=== PATIENT | male | born 1955 | race Caucasian/White ===

== ENCOUNTER 2020-05-19 11:53 | Outpatient (CLI) | payer OTHER, SELFPAY ==
--- NOTE | ~2020-05-19 | XR_ITS ---
XR finger 4th LT min 2V DATE: 05/19/2020 12:13 INDICATION: Distal phalanx fracture TECHNIQUE: 4 views COMPARISON: 04/07/2019 left fourth finger FINDINGS: There is healed fracture deformity of the distal shaft and tuft of the distal phalanx. No other fracture or dislocation. IMPRESSION: Healed fracture of distal phalanx Reviewed, dictated and finalized at location B.
== END 2020-05-19 11:54 | disposition home or self-care (01) ==
LOC: ANHIMG 11:59
PROVIDERS: PCP Physician Assistant; Visit Provider Plastic Surgery
DX: S62.635D Displaced fracture of distal phalanx of left ring finger, subsequent encounter for fracture with routine healing (principal); X58.XXXD Exposure to other specified factors, subsequent encounter
CPT/HCPCS: 73140

== ENCOUNTER → 2020-05-20 11:22 | Outpatient (CLI) | payer OTHER, SELFPAY ==
--- NOTE | ~2020-05-20 | US_ITS ---
EXAMINATION: US carotid duplex BI DATE: 05/20/2020 12:58 INDICATION: Near syncope. TECHNIQUE: Grayscale, color Doppler, and pulsed Doppler images of the cervical carotid arteries were obtained. The degree of vessel stenosis is placed in one of the following categories: normal, <50%, 5 0-69%, >=70% but less than near-occlusion, near-occlusion, or total occlusion. Note that percent sten osis relative to normal distal artery lumen diameter is indirectly measured from velocity measurement s as described by Brock, et al. Radiology 2003; 229:340-346. COMPARISON: None. FINDINGS: RIGHT: The right common carotid artery (CCA) peak systolic velocity (PSV) is 93 cm/s. The right internal car otid artery (ICA) PSV is 63 cm/s. The right ICA end-diastolic velocity (EDV) is 17 cm/s. The right IC A/CCA PSV ratio is 0.7. Grayscale and color Doppler images yield an estimate of 0% diameter reduction from plaque in the ICA. There is antegrade flow in the right vertebral artery. LEFT: The left CCA PSV is 100 cm/s. The left ICA PSV is 59 cm/s. The left ICA EDV is 16 cm/s. The left ICA/ CCA PSV ratio is 0.6. Grayscale and color Doppler images yield an estimate of 0% diameter reduction f rom plaque in the ICA. There is antegrade flow in the left vertebral artery. IMPRESSION: 1. Normal internal carotid arteries. Reviewed, dictated and finalized at location A.
--- NOTE | ~2020-05-20 | MR_ITS ---
EXAMINATION: MR brain/brain stem wo/w con DATE: 05/20/2020 12:11 INDICATION: Syncope and collapse. TECHNIQUE: Magnetic resonance imaging (MRI) of the brain and brainstem was performed without and with 17 mL MultiHance intravenous contrast. Sequences included sagittal and axial T1-weighted FSE, axial diffusion-weighted FS EPI, axial T2*-weighted GRE, axial T2-weighted FLAIR Propeller, and axial T2-we ighted Propeller. Postcontrast sequences included axial and coronal T1-weighted FSE. Apparent diffusi on coefficient (ADC) maps were created. 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 There is no intracranial he morrhage, acute infarction, or abnormal intracranial mass lesion. The ventricles are normal in size. The paranasal sinuses are clear. The orbits are normal. The mastoid air cells are normal. IMPRESSION: 1. 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 Reviewed, dictated and finalized at location A.
[2020-05-20 11:59] LABS: Estimated Glomerular Filt Rate > 60
== END ==
PROVIDERS: PCP Physician Assistant; Visit Provider Physician Assistant
DX: R55 Syncope and collapse (principal); Z86.73 Personal history of transient ischemic attack (TIA), and cerebral infarction without residual deficits
CPT/HCPCS: 36415; 70553; 93880; A9577

== ENCOUNTER 2020-12-11 11:30 | Emergency (ER) | payer OTHER, SELFPAY ==
--- NOTE | ~2020-12-11 | XR_ITS ---
EXAMINATION: XR ankle RT 2V DATE: 12/11/2020 14:12 INDICATION: Distal right fibula fracture. TECHNIQUE: 2 views of right ankle were obtained. COMPARISON: Right ankle radiographs at 11:38 AM FINDINGS: There is an oblique fracture of distal fibula with the anteromedial aspect of the fracture line at the level of the tibial plafond. The distal fracture fragment demonstrates 4 mm posterior dis placement. Alignment is now normal at the ankle mortise. Joint spaces are normal. Cast material obscu res fine bone detail. IMPRESSION: 1. Oblique fracture of distal fibula with improvement in alignment. 2. Complete tear of the deltoid ligament with improved alignment at the tibiotalar joint. Reviewed, dictated and finalized at location A. INSPECTOR IMPRESSION: 1. Oblique fracture of distal fibula with improvement in alignment. 2. Complete tear of the deltoid ligament with improved alignment at the tibiota lar joint.
--- NOTE | ~2020-12-11 | XR_ITS ---
EXAMINATION: XR ankle RT min 3V DATE: 12/11/2020 11:55 INDICATION: Right ankle deformity post fall on ice. TECHNIQUE: Anteroposterior, oblique, mortise, and lateral views of the right ankle were obtained. COMPARISON: None. FINDINGS: There is an oblique fracture through the distal fibula with a fracture plane exiting medially at the level of the tibiotalar joint. There is approximately 11 mm lateral to posterolateral displacement an d 5 degrees posterior angulation. No other fracture identified. Specifically the medial and posteri or malleoli as well as the talar dome are intact. There is however associated mild lateral subluxatio n of the talar dome with respect to the tibial plafond and with widening of the medial clear space wh ich measures approximately 10 mm consistent with associated deltoid ligament tear. There is a small a nkle joint effusion with widening of the anterior joint space. No ankle joint effusion. IMPRESSION: 1. [Posterolateral displacement of an oblique fracture of the distal left fibula and widening of the medial clear space consistent with a Dawn type B2 injury pattern with associated deltoid ligament te ar. Reviewed, dictated and finalized at location B. TROPHYSIOLOGY SCIENTIST IMPRESSION: 1. [Posterolateral displacement of an oblique fracture of the distal left fibul a and widening of the medial clear space consistent with a Dawn type B2 injury pattern with associated deltoid ligament tear.
[2020-12-11 11:27] VITALS: BP 173/97; PULSE 70; RESP 17; TEMP 36.8; O2SAT 100
--- NOTE | 2020-12-11 12:55 | ED.GENADULT ---
HPI - General Adult General Chief complaint: Fall Stated complaint: FALL/ANKLE DEFORMITY Time Seen by Provider: 12/11/20 11:40 History of Present Illness HPI narrative: Patient is a 65-year-old male who presents ER with left ankle deformity. She went out for a walk and slipped on the ice. He then hit the ground injuring his ankle. Reports deformity after falling. EMS splinted the ankle. Patient denies striking his head or losing consciousness. No other injuries that he reports. He has no numbness or tingling in his foot. He has throbbing pain in his ankle at this time. Related Data Allergies Allergy/AdvReac Type Severity Reaction Status Date / Time No Known Allergies Allergy Unverified 04/07/19 16:26 Review of Systems Musculoskeletal: Musculoskeletal: Denies back pain, Reports arthralgias and Reports joint swelling Integumentary/Breasts: Skin/Breast: Denies erythema and Denies rash Neurologic: Denies syncope, Denies focal weakness and Denies numbness PMFSH Past Medical History Medical History (Updated 12/11/20 @ 14:47 by Bogdan Armas MD) Atrial fibrillation Surgical History Surgical History (Updated 12/11/20 @ 12:57 by Bogdan Armas MD) No history of previous surgery Family History Family History (Updated 12/07/17 @ 11:02 by DOCTOR UNKNOWN) Mother Patient's mother is in good health Father Malignant neoplasm of prostate Social History Social History Smoking status: Never smoker Alcohol intake: current Exam Narrative: Exam Narrative: GENERAL: Well-appearing, well-nourished, and in no acute distress. HEAD: Normocephalic, atraumatic. HEART: Regular rate and rhythm. Normal peripheral pulses. EXTREMITIES: The right ankle with tenderness. Splint placed. No tenderness or deformity to the knee/hip on the right lower extremity. Otherwise extremities are normal. SKIN: Warm, dry, no rash. NEURO: Alert and oriented x3. PSYCH: Normal mood and affect. Course Course Emergency Course: Patient splinted. Repeat films show improvement in alignment. Will give crutch training. Discussed with Dr. Quinones who would like patient follow-up tomorrow morning at 10:30 AM. Patient verbalized understanding of this. Vital Signs Vital signs: Vital Signs Temperature 98.2 F 12/11/20 11:27 Pulse Rate 70 12/11/20 11:27 Respiratory Rate 17 12/11/20 11:27 Blood Pressure 173/97 H 12/11/20 11:27 Pulse Oximetry 100 12/11/20 11:27 Temperature 98.2 F 12/11/20 11:27 Pulse Rate 70 12/11/20 11:27 Respiratory Rate 17 12/11/20 11:27 Blood Pressure 173/97 H 12/11/20 11:27 Pulse Oximetry 100 12/11/20 11:27 Procedures Orthopedic Splinting/Casting Injury #1: Splinting/Casting Date: 12/11/20 Splinting/Casting Time: 14:00 Side: right Lower Extremity Injury Location: ankle Lower Extremity Immobilizer: posterior splint and stirrup splint Splint: customized in ED Pre-Procedure Neuro Vascular Exam: normal Post-Procedure Neuro Vascular Exam: normal Other Orthopedic Equipment: crutches Medical Decision Making Vital Signs Vital Signs: Vital Signs Temperature 98.2 F 12/11/20 11:27 Pulse Rate 70 12/11/20 11:27 Respiratory Rate 17 12/11/20 11:27 Blood Pressure 173/97 H 12/11/20 11:27 Pulse Oximetry 100 12/11/20 11:27 Temperature 98.2 F 12/11/20 11:27 Pulse Rate 70 12/11/20 11:27 Respiratory Rate 17 12/11/20 11:27 Blood Pressure 173/97 H 12/11/20 11:27 Pulse Oximetry 100 12/11/20 11:27 Imaging Data Radiologist's impression: ITS Impressions Ankle X-Ray 12/11/20 11:55 IMPRESSION: 1. [Posterolateral displacement of an oblique fracture of the distal left fibula and widening of the medial clear space consistent with a Dawn type B2 injury pattern with associated deltoid ligament tear. Ankle X-Ray 12/11/20 14:18 IMPRESSION: 1. Oblique fracture of distal fibula with improvem
[2020-12-11] MEDS: MORPHINE SULFATE (*CRX) 4 MG/ML INJ IV PUSH (14:06)
[2020-12-11 15:05] VITALS: BP 148/79; PULSE 60; RESP 20; O2SAT 99
== END 2020-12-11 15:05 | disposition home or self-care (01) ==
PROVIDERS: Emergency Provider Emergency Medicine; PCP Physician Assistant
DX: S82.841A Displaced bimalleolar fracture of right lower leg, initial encounter for closed fracture (principal); S93.421A Sprain of deltoid ligament of right ankle, initial encounter; I48.91 Unspecified atrial fibrillation; W00.0XXA Fall on same level due to ice and snow, initial encounter
CPT/HCPCS: 29515; 73600; 73610; 96374; 99284; J2270

== ENCOUNTER 2020-12-13 01:15 | Outpatient (CLI) | payer OTHER, SELFPAY ==
[2020-12-13 18:47] LABS: SARS-CoV-2 RNA PCR Negative
== END 2020-12-13 01:16 | disposition home or self-care (01) ==
LOC: ANHCOVIDDT 01:16
PROVIDERS: PCP Physician Assistant; Visit Provider Orthopaedic Surgery
DX: Z01.812 Encounter for preprocedural laboratory examination (principal); Z20.822 Contact with and (suspected) exposure to COVID-19
CPT/HCPCS: C9803; U0003; U0005

== ENCOUNTER 2020-12-15 01:02 | Day surgery (SDC) | payer OTHER, SELFPAY ==
[2020-12-12 14:00] VITALS: BMI 26.8
[2020-12-15] VITALS (7 sets, daily range): BP systolic 117–143; BP diastolic 74–90; PULSE 55–70; RESP 12–20; TEMP 36.1–36.7; O2SAT 97–100
--- NOTE | ~2020-12-15 | XR_ITS ---
XR surgery orthopedic 12/15/2020 15:47 Indication: Intraoperative fixation of right ankle fracture Procedure: 4 views of the right ankle. 24 seconds of fluoroscopy. Comparison: 12/11/2020 Findings: Status post intraoperative fixation of oblique distal fibular fracture with sideplate and s crews. Right ankle is in anatomic alignment post reduction. Ankle mortise intact. Impression: 1: Anatomic alignment of the right ankle status post intraoperative fixation of distal fibular fractu re with sideplate and screws. Reviewed, dictated and finalized at location A. [employer] Impression: 1: Anatomic alignment of the right ankle status post intraoperative fixation of distal fibular fracture with sideplate and screws.
--- NOTE | 2020-12-15 10:49 | ECG_ITS ---
Measurements Intervals [place] Rate: 71 P: 70 SD: 153 QRS: 43 QRSD: 102 T: 30 QT: 382 QTc: 416 Interpretive Statements SINUS RHYTHM WITH SINUS ARRHYTHMIA NORMAL ECG Electronically Signed On 12-15-2020 12:50:39 FINISHED [employer] by Rene Schmitt D.O.
--- NOTE | 2020-12-15 12:34 | WPDANESEPPF ---
Anes - Initial Pre Proc Eval Procedure: Operation Date: 12/15/20 14:00 Proposed Procedures p Open Reduction Internal Fixation Right Ankle Fracture - Reynaldo Quinones MD Date/Time: 12/15/20 12:34 Surgeon: Reynaldo Quinones MD Pre Op Diagnosis: right malleolar and lateral ankle fx Patient Data Age: 65 Gender: M Height: 1.8 m Weight: 87.27 kg Allergies Allergy/AdvReac Type Severity Reaction Status Date / Time No Known Allergies Allergy Unverified 12/12/20 13:54 Home Medications Medication Instructions Recorded Confirmed Type hydrocodone-acetaminophen 1 tablet PO Q6H PRN #20 tablet 12/11/20 12/12/20 Rx ascorbic acid (vitamin C) [Vitamin 1 tablet PO QAM 12/12/20 12/12/20 History C] astaxanthin 4 mg PO QAM 12/12/20 12/12/20 History cholecalciferol (vitamin D3) 25 mcg PO DAILY 12/12/20 12/12/20 History [Vitamin D3] krill oil 500 mg PO QAM 12/12/20 12/12/20 History metoprolol succinate 50 mg QAM 12/12/20 12/12/20 History zinc 50 mg PO DAILY 12/12/20 12/12/20 History Patient hx anesthesia problems: none Family hx anesthesia problems: none PMFSH Past Medical History Medical History (Updated 12/15/20 @ 12:39 by Kaushik Hodges MD) Atrial fibrillation Spinal stenosis Surgical History Surgical History (Updated 12/11/20 @ 12:57 by Bogdan Armas MD) No history of previous surgery Family History Family History (Updated 12/07/17 @ 11:02 by DOCTOR UNKNOWN) Mother Patient's mother is in good health Father Malignant neoplasm of prostate Social History Social History Smoking status: Never smoker Second hand tobacco smoke exposure: No Alcohol intake: current Drinks per week: 3 Substance use: never Substance use type: does not use Living arrangements: with family Spiritual care concerns: No Anes - Eval Final PreProcedure Day of Procedure 12/15/20 12:34 Patient weight: obese Heart: regular rate and rhythm Lungs: clear to auscultation and normal air movement Airway: Mallampati scale class II Neurological: alert and oriented Last oral intake: >/= 8 hours ASA classification: III Emergent: no Anesthetic plan: proceed Anesthesia type and monitoring: general LMA and ETT Informed Consent: The patient's anesthetic plan and its attendant risks and benefits were discussed with the patient/family/POA. Questions were solicited and answers provided to the satisfaction of the patient/family/POA.
--- NOTE | 2020-12-15 13:02 | SUR.PREOP ---
pt with slint drsg to right foot,surgical scrub sent to or,no shaving done.
[2020-12-15] MEDS: LACTATED RINGERS 1,000 ML 30 ML IV CONT ×2 (13:09→15:36)
[2020-12-15] MEDS: KETOROLAC 15 MG/ML VIAL (*BKC) IV PUSH (13:12)
[2020-12-15] MEDS: FAMOTIDINE 20 MG/2 ML VIAL IV PUSH (13:12)
[2020-12-15] MEDS: ONDANSETRON INJ 4 MG/2 ML VIAL IV PUSH (13:13)
--- NOTE | 2020-12-15 13:15 | SUR.PREOP ---
pt complained stomache ,dr stockton aware,pepcid and zofran given.
[2020-12-15] MEDS: ACETAMINOPHEN 500 MG TABLET 1000 MG PO (13:23)
--- NOTE | 2020-12-15 14:02 | WPDHPUPDATE1 ---
History and Physical Update Update Date/Time: 12/15/20 14:02 Proceed with ORIF right ankle, lateral malleolus, right. History and Physical has been reviewed, including an updated exam of the patient. There are NO changes in the patient's condition. Risks, benefits, and alternatives have been discussed and questions answered. Patient agrees to proceed with procedure.
[2020-12-15] MEDS: ceFAZolin 2 GM/D5W 50 ML 2 GM/50 ML BAG IVPB (14:07)
--- NOTE | 2020-12-15 16:13 | P.OP_ITS ---
Procedure Note - Detailed Date of procedure: 12/15/20 Pre-op diagnosis: right malleolar and lateral ankle fx Post-op diagnosis: same Procedure performed: ORIF lateral malleolus, ankle fracture, right. Implants: [employer] Axos 2 distal fibular plate.Multiple compression and locking screws. Anesthesia: GETA Surgeon: Reynaldo Quinones MD Pediatric Clinical Dietician: Sujata Lutz PA-C Estimated blood loss (mL): 20 Drains: No Complications: None Condition: stable Disposition: same day Findings: Physician technical staff assistant, Sujata Lutz PA-C, required for surgery; including patient positioning, draping, tissue retraction, maintaining instrument position, wound closure, and dressing placement. A general anesthetic was administered. The limb was prepped and draped in the usual sterile fashion with a well-padded tourniquet high on the thigh. A bump was placed under the hip. The limb was exsanguinated and the tourniquet inflated to 300 millimeters of mercury during the procedure. A longitudinal incision was created at the distal fibula. Careful dissection was carried down to bone. Perineal nerve branches were protected. The fracture was carefully exposed. Callus and debris was irrigated from the wound. The fracture was brought out to length. Reduction was accomplished with the reduction forceps. A single anterior to posterior lag screw was placed with excellent purchase. The fixation plate was contoured. Fixation was performed with a combination of compression and locking screws. Fluoroscopy was used throughout the procedure to confirm anatomic reduction and appropriate placement of the implants. The syndesmosis was tested, and found to be stable. The wound was closed in layers with 2-0 Vicryl suture 3-0 Monocryl suture and donaldo. A sterile splint with padding was applied. The patient was extubated and brought to the recovery room in stable condition. There were no complications.
[2020-12-15] MEDS: fentaNYL CITRATE INJ (*CRX) 100 MCG/2 ML VIAL 25 MCG IV PUSH ×2 (16:18→16:23)
[2020-12-15] MEDS: oxyCODONE HCL (*CRX) 5 MG TAB IR PO (17:04)
== END 2020-12-15 18:05 | disposition home or self-care (01) ==
PROVIDERS: PCP Physician Assistant; Visit Provider Orthopaedic Surgery
PROC: (CPT 27792; principal; 2020-12-15 14:00)
DX: S82.61XA Displaced fracture of lateral malleolus of right fibula, initial encounter for closed fracture (principal); W00.0XXA Fall on same level due to ice and snow, initial encounter; I48.91 Unspecified atrial fibrillation
CPT/HCPCS: 27792; 93005; A9270; C1713; C9803; J0690; J1100; J1170; J1885; J2250; J2405; J2704; J3010; J7120; U0003; U0005

== ENCOUNTER 2021-01-22 12:40 | Emergency (ER) | payer OTHER, SELFPAY ==
[2021-01-22] VITALS (16 sets, daily range): BP systolic 127–140; BP diastolic 80–95; PULSE 57–63; RESP 12–23; TEMP 36.8; O2SAT 94–100
--- NOTE | ~2021-01-22 | XR_ITS ---
EXAMINATION: XR chest 1V DATE: 01/22/2021 13:13 INDICATION: Right arm numbness and tingling. TECHNIQUE: A single frontal view of the chest was obtained. COMPARISON: Chest 2 views 07/07/2018 FINDINGS: The chest demonstrates clear lungs without pneumonia, pleural effusion, or pneumothorax. Th e heart size is normal. IMPRESSION: 1. No acute cardiopulmonary disease. Reviewed, dictated and finalized at location A. RVISOR CHASSIS ASSEMBLY
--- NOTE | ~2021-01-22 | CT_ITS ---
EXAMINATION: CT brain wo con INDICATION: Right arm numbness and headaches COMPARISON: 06/16/2011 TECHNIQUE: Standard unenhanced head CT. The dose-length product (DLP) was 605.33 mGy-cm. The mA was a djusted according to patient size. Iterative reconstruction technique was employed. FINDINGS: There is no intracranial hemorrhage, acute infarction, or abnormal mass lesion. There is an old infarct in the right cerebellum. The ventricles are normal. There is no abnormal mass effect or midline shift. The griffin-white matter differentiation is normal. The basal cisterns are patent. The or bits are normal. The paranasal sinuses, mastoids and calvarium are normal. IMPRESSION: 1. No acute intracranial abnormality. Reviewed, dictated and finalized at location A. R OPERATOR
--- NOTE | 2021-01-22 12:49 | ECG_ITS ---
Measurements Intervals [place] Rate: 60 P: 61 TX: 162 QRS: 44 QRSD: 91 T: 40 QT: 395 QTc: 395 Interpretive Statements SINUS RHYTHM BASELINE WANDER- V1-V3, V6 NORMAL ECG Electronically Signed On 01-22-2021 13:36:38 [employer] by Rene Schmitt D.O.
[2021-01-22 13:44] LABS: Glucose Point of Care 90 (65-105)
[2021-01-22 13:45] LABS: Basophils Absolute Auto 0.1 K/mm3 (0.0-0.1); Basophils Percent Auto 1.3 % (0.2-1.2); Eosinophils Absolute Auto 0.1 K/mm3 (0-0.3); Eosinophils Percent Auto 1.6 % (0-4.4); Hematocrit 42.9 % (42.0-52.0); Hemoglobin 14.1 g/dL (14.0-18.0); Immature Granulocyte Absolute 0.02 K/mm3 (0.00-0.031); Immature Granulocyte Percent A 0.3 % (0-0.5); Lymphocytes Absolute Auto 1.34 K/mm3 (0.9-3.2); Lymphocytes Percent Auto 19.3 % (18.3-44.2); Mean Corpuscular HGB Conc 32.9 g/dl (32-36); Mean Corpuscular Hemoglobin 30.9 pg (26-34); Mean Corpuscular Volume 94.1 fl (80-100); Monocytes Absolute Auto 0.7 K/mm3 (0.1-0.6); Monocytes Percent Auto 9.9 % (2.6-8.5); Neutrophils Absolute Auto 4.7 K/mm3 (1.3-6.7); Neutrophils Percent Auto 67.6 % (45.5-73.1); Platelet Count Result 277 k/mm3 (150-375); Red Blood Count 4.56 M/mm3 (4.6-6.20)
[2021-01-22 14:01] LABS: INR 0.9; Prothrombin Time 13.2 Seconds (11.1-14.7)
[2021-01-22 14:03] LABS: Partial Thromboplastin Time 27.9 SECONDS (22.3-36.8)
[2021-01-22 15:09] LABS: Troponin I < 0.012 ng/mL (0.000-0.034)
[2021-01-22 15:24] LABS: Anion Gap 6 mmol/L (8-16); Blood Urea Nitrogen 13 mg/dL (9-20); Calcium 8.8 mg/dL (8.4-10.2); Carbon Dioxide 25 mmol/L (22-30); Chloride 103 mmol/L (98-107); Estimated CRCL calculation 70 ml/min; Estimated Glomerular Filt Rate > 60; Glucose 92 mg/dL (75-110); Potassium 4.9 mmol/L (3.4-5.0); Sodium 134 mmol/L (137-145)
--- NOTE | 2021-01-22 15:25 | ED.NEUROSD ---
HPI - Neuro Symptoms/Deficit General Chief Complaint: Neuro Symptoms/Deficit Stated Complaint: right arm numbness, 15 mins ago Time Seen by Provider: 01/22/21 13:05 History of Present Illness HPI Narrative: Patient is a 65-year-old male who presents ER with right arm numbness. Reports earlier this morning and was having some cramps and spasms in his latissimus dorsi on the right side. He then started having similar type feeling in his forearm and hand that lasted for several minutes and associated with numbness heaviness in that hand. Symptoms have since resolved. No facial droop or slurred speech. No history of stroke. He is currently in a walking boot due to a ankle fracture. Also reports since his surgery he has been having brain zaps where he has loud noises in his ears that will last for a few minutes. He used to have this in the past when he placed CBD oil on his back for back pain but when he quit the CBD oil the brain zaps went away. Related Data Home Medications Medication Instructions Recorded Confirmed ascorbic acid (vitamin C) 1 tablet PO QAM 12/12/20 12/15/20 astaxanthin 4 mg PO QAM 12/12/20 12/15/20 cholecalciferol (vitamin D3) 25 mcg PO DAILY 12/12/20 12/15/20 [Vitamin D3] krill oil 500 mg PO QAM 12/12/20 12/15/20 metoprolol succinate 50 mg QAM 12/12/20 12/15/20 zinc 50 mg PO DAILY 12/12/20 12/15/20 Allergies Allergy/AdvReac Type Severity Reaction Status Date / Time No Known Allergies Allergy Verified 01/22/21 12:41 Review of Systems Review of Systems: All systems reviewed & are unremarkable except as noted in HPI and below Constitutional: Constitutional: Denies chills, Denies fever(s) and Denies weakness Eyes: Eyes: Denies change in vision Comments: Tinnitus Cardiovascular: Cardiovascular: Denies chest pain and Denies radiating jaw, neck or arm pain Musculoskeletal: Musculoskeletal: Denies back pain, Denies arthralgias, Denies joint swelling and Reports muscle cramps Neurologic: Denies dizziness, Denies focal weakness and Reports numbness [facility] Past Medical History Medical History (Updated 01/22/21 @ 15:33 by Bogdan Armas MD) Atrial fibrillation Broken ankle 12/2020 Chronic throat clearing Spinal stenosis Surgical History Surgical History (Updated 01/19/21 @ 13:43 by Sunitha Drummond CMA) H/O laminectomy No history of previous surgery Family History Family History (Updated 01/19/21 @ 13:45 by Sunitha Drummond CMA) Mother Cerebrovascular accident Father Malignant neoplasm of prostate Atrial fibrillation Social History Social History Smoking status: Never smoker Second hand tobacco smoke exposure: No Alcohol intake: current Drinks per week: 3 Substance use: never Substance use type: does not use Spiritual care concerns: No Exam Narrative: Exam Narrative: GENERAL: Well-appearing, well-nourished, and in no acute distress. HEAD: Normocephalic, atraumatic. EYES: PERRL and EOMI. ENT: Mucous membranes moist. CHEST: Clear to auscultation. No respiratory distress. HEART: Regular rate and rhythm. Normal peripheral pulses. ABDOMEN: Soft, nontender, nondistended. EXTREMITIES: Normal range of motion. No edema. SKIN: Warm, dry, no rash. NEURO: No focal deficits. No upper or lower extremity drift. Normal [id number] testing. Cranial nerves II through XII intact. Alert and oriented x3. Course Course Emergency Course: No focal deficit. Symptoms sound like muscle spasm the paresthesia. Recommend daily aspirin until he can follow-up with his PCP given history of A. fib. Vital Signs Vital signs: Vital Signs Temperature 98.3 F 01/22/21 13:13 Pulse Rate 59 L 01/22/21 13:13 Respiratory Rate 16 01/22/21 13:13 Pulse Oximetry 94 01/22/21 13:13 Temperature 98.3 F 01/22/21 13:13 Pulse Rate 59 L 01/22/21 13:13 Respiratory Rate 16 01/22/21 13:13 Pulse Oximetry 94 01/22/21 13:13 MDM - Neuro Symptoms/Deficit Lab Data
== END 2021-01-22 15:45 | disposition home or self-care (01) ==
PROVIDERS: Emergency Provider Emergency Medicine; PCP Internal Medicine
DX: R20.2 Paresthesia of skin (principal); M62.838 Other muscle spasm; I48.91 Unspecified atrial fibrillation
CPT/HCPCS: 36415; 70450; 71045; 80048; 82948; 84484; 85025; 85610; 85730; 93005; 99284

== ENCOUNTER 2021-02-12 13:14 | Outpatient (CLI) | payer OTHER, SELFPAY ==
--- NOTE | ~2021-02-12 | CT_ITS ---
EXAMINATION: CT diagnostic chest wo con EXAM DATE: 02/12/2021 13:34 INDICATION: Cough. TECHNIQUE: Spiral CT of the chest without contrast. Axial, coronal and sagittal images were reviewe d. Coronal maximum intensity pixel images of chest reviewed. The dose-length product (DLP) for this examination was 261.99 mGy-cm. The exposure was tailored according to patient size (auto mA exposur e control), and iterative reconstruction (ASIR) was used as additional dose reduction technique. Dragan elation is made to chest x-ray 12/25/2020. FINDINGS: The lungs are clear. There are no pleural or pericardial effusions. Tracheobronchial t ree is patent. There is no mediastinal, hilar or axillary lymphadenopathy. There is no pneumothor ax. Heart normal in size. No evidence of coronary arterial calcification. Upper abdomen is unrem arkable. There is thoracic spondylosis without osteoblastic or osteolytic lesions identified. IMPRESSION: 1. Unremarkable CT chest examination. Reviewed, dictated and finalized at location A.
== END 2021-02-12 13:15 | disposition home or self-care (01) ==
PROVIDERS: PCP Internal Medicine; Visit Provider Internal Medicine
DX: R05 Cough (principal); R68.89 Other general symptoms and signs
CPT/HCPCS: 71250

== ENCOUNTER 2021-07-17 15:14 | Outpatient (CLI) | payer OTHER, SELFPAY ==
--- NOTE | ~2021-07-17 | MR_ITS ---
EXAMINATION: MR cervical spine wo con DATE: 07/17/2021 16:02 INDICATION: Cervical radiculopathy. TECHNIQUE: Magnetic resonance imaging (MRI) of the cervical spine was performed without intravenous c ontrast. Sequences included sagittal T2-weighted FSE, sagittal STIR FSE, sagittal T1-weighted FSE, ax ial MERGE, and axial T2-weighted FSE. COMPARISON: Cervical spine MRI 06/09/2017 FINDINGS: There is hypolordosis of cervical spine. There is mild chronic anterior wedging of C5 verte bral body. There is severely decreased disc height at C5-C6 and moderately decreased disc at C6-C7. T he spinal cord signal intensity is normal. The following disc levels are specifically discussed: C2-C3: The disc does not extend beyond the endplate margin. There is no uncovertebral joint osteoarth ritis. There is moderate right and severe left facet joint osteoarthritis. There is mild left neural foraminal stenosis. There is no central canal stenosis. C3-C4: The disc does not extend beyond the endplate margin. There is no uncovertebral joint osteoarth ritis. There is mild right facet joint osteoarthritis. There is ankylosis of left facet joint with mo derate hypertrophy. There is moderate left neural foraminal stenosis. There is no central canal steno sis. C4-C5: The disc does not extend beyond the endplate margin. There is no uncovertebral joint osteoarth ritis. There is mild right and moderate left facet joint osteoarthritis. There is mild left neural fo raminal stenosis. There is no central canal stenosis. C5-C6: The disc is bulging. There is severe bilateral uncovertebral joint osteoarthritis. There is mi ld bilateral facet joint osteoarthritis. There is severe right and mild left neural foraminal stenosi s. There is moderate central canal stenosis with ventral and dorsal indentation of cervical spine. C6-C7: The disc is bulging. There is severe right and moderate left uncovertebral joint osteoarthriti s. There is mild bilateral facet joint osteoarthritis. There is moderate right and mild left neural f oraminal stenosis. There is mild central canal stenosis. C7-T1: The disc does not extend beyond the endplate margin. There is mild bilateral uncovertebral wilma nt osteoarthritis. There is mild right facet joint osteoarthritis. There is mild right neural foramin al stenosis. There is no central canal stenosis. IMPRESSION: 1. Severe cervical spondylosis, mildly worsened from 06/09/2017. Reviewed, dictated and finalized at location A.
== END 2021-07-17 15:15 | disposition home or self-care (01) ==
PROVIDERS: PCP Internal Medicine
DX: M47.13 Other spondylosis with myelopathy, cervicothoracic region (principal); M48.03 Spinal stenosis, cervicothoracic region
CPT/HCPCS: 72141

== ENCOUNTER → 2022-01-01 11:22 | Outpatient (CLI) | payer OTHER, SELFPAY ==
--- NOTE | ~2022-01-01 | XR_ITS ---
XR chest 2V DATE: 01/01/2022 11:43 INDICATION: Chest pain TECHNIQUE: PA and lateral views COMPARISON: CT diagnostic chest 01/22/2021 PA chest FINDINGS: Normal heart size. No hilar or mediastinal enlargement. There is bilateral hyperinflation. No pulmonary infiltrate or consolidation, pleural effusion or pulmonary vascular congestion or pneumo thorax is detected. IMPRESSION: Bilateral hyperinflation; otherwise no active cardiopulmonary disease Reviewed, dictated and finalized at location B. OR DATA ANALYST IMPRESSION: Bilateral hyperinflation; otherwise no active cardiopulmonary disea se
== END ==
PROVIDERS: Visit Provider Nurse Practitioner
DX: R07.9 Chest pain, unspecified (principal)
CPT/HCPCS: 71046

== ENCOUNTER 2022-01-13 18:25 | Emergency (ER) | payer OTHER, SELFPAY ==
[2022-01-13 18:28] VITALS: BP 161/89; PULSE 75; RESP 18; TEMP 36.4; O2SAT 100
[2022-01-13 18:39] VITALS: BP 147/96; PULSE 62; RESP 16; TEMP 36.4; O2SAT 97
--- NOTE | 2022-01-13 19:25 | ED.EYEPROB ---
HPI - Eye Problem General Chief complaint: Eye Problems Stated complaint: VISUAL CHANGES, HEADACHE, NAUSEA Time Seen by Provider: 01/13/22 18:50 History of Present Illness HPI Narrative: 66-year-old male presents to the emergency room with acute onset of floaters in his right eye. Patient states that he was painting earlier today and began experiencing black spots and floaters in his right eye. Patient denies injury or trauma. Denies visual loss. No history of glaucoma, macular degeneration, or cataracts. Patient denies pain in his eye. Related Data Home Medications Medication Instructions Recorded Confirmed ascorbic acid (vitamin C) 1 tablet PO QAM 12/12/20 12/14/21 cholecalciferol (vitamin D3) 25 mcg PO DAILY 12/12/20 12/14/21 [Vitamin D3] krill oil 500 mg PO QAM 12/12/20 12/14/21 metoprolol succinate 50 mg QAM 12/12/20 12/14/21 zinc 50 mg PO DAILY 12/12/20 12/14/21 Allergies Allergy/AdvReac Type Severity Reaction Status Date / Time No Known Allergies Allergy Verified 10/22/21 13:20 Review of Systems Review of Systems: CONSTITUTIONAL: Denies fever, chills, or sweats. EYES: Per HPI: Floaters in the right eye, redness, or discharge. ENT: Denies rhinorrhea, congestion, sore throat, or otalgia. CARDIOVASCULAR: Denies chest pain, palpitations, or edema. RESPIRATORY: Denies cough or dyspnea. GASTROINTESTINAL: Denies abdominal pain, nausea, vomiting, or diarrhea. GENITOURINARY: Denies dysuria or hematuria. SKIN: Denies rash or itching. MUSCULOSKELETAL: Denies back pain, joint pain, or myalgia. NEUROLOGIC: Denies headache, numbness, dizziness, or weakness. PSYCHIATRIC: Denies anxiety or depression. [facility] Past Medical History Medical History Atrial fibrillation Broken ankle 12/2020 Chronic throat clearing Spinal stenosis Surgical History Surgical History H/O laminectomy No history of previous surgery Family History Family History Mother Cerebrovascular accident Father Malignant neoplasm of prostate Atrial fibrillation Social History Social History Smoking status: Never smoker Second hand tobacco smoke exposure: No Alcohol intake: current Drinks per week: 3 Substance use: never Substance use type: does not use Spiritual care concerns: No Exam Narrative: GENERAL: Well-appearing, well-nourished, and in no acute distress. HEAD: Normocephalic, atraumatic. EYES: PERRLA and EOMI. ENT: Nares clear, no rhinorrhea or epistaxis. Mucous membranes moist. NECK: Supple. No adenopathy or masses. No carotid bruits or JVD CHEST: Clear to auscultation. No respiratory distress. No wheezes rales or rhonchi HEART: Regular rate and rhythm. No murmur heard. Normal peripheral pulses. ABDOMEN: Soft, nontender, nondistended, normal active bowel sounds. EXTREMITIES: Normal range of motion. No edema. SKIN: Warm, dry, no rash. NEURO: No focal deficits. Alert and oriented x3. PSYCH: Normal mood and affect. Course Vital Signs Vital signs: Vital Signs Temperature 36.4 C 01/13/22 18:28 Pulse Rate 75 01/13/22 18:28 Respiratory Rate 18 01/13/22 18:28 Blood Pressure 161/89 H 01/13/22 18:28 Pulse Oximetry 100 01/13/22 18:28 Temperature 36.4 C 01/13/22 18:39 Pulse Rate 62 01/13/22 18:39 Respiratory Rate 16 01/13/22 18:39 Blood Pressure 147/96 H 01/13/22 18:39 Pulse Oximetry 97 01/13/22 18:39 MDM - Eye Problem MDM Narrative Medical decision making narrative: Consulted with [facility] ophthalmology, MD Mercer, she recommends follow-up in the morning. Patient has a schedule appointment at 9 [facility] for suspected partial retinal tear Medical Records Attestation: I reviewed the patient's medical recor
[2022-01-13 20:42] VITALS: BP 142/84; PULSE 56; RESP 14; TEMP 36.7; O2SAT 97
--- NOTE | 2022-01-13 20:46 | PC.NURSE ---
Patient discharged to home in [id number] condition and understands discharge instructions.
== END 2022-01-13 20:45 | disposition home or self-care (01) ==
PROVIDERS: Emergency Provider Nurse Practitioner Family; PCP Internal Medicine
DX: H53.9 Unspecified visual disturbance (principal); I48.91 Unspecified atrial fibrillation
CPT/HCPCS: 99282

== ENCOUNTER → 2022-06-02 15:34 | Outpatient (CLI) | payer OTHER, SELFPAY ==
--- NOTE | ~2022-06-02 | XR_ITS ---
XR thoracic spine 3V DATE: 06/02/2022 15:58 INDICATION: Thoracic spine pain TECHNIQUE: AP, lateral, swimmer views COMPARISON: None FINDINGS: Severe degenerative disc disease at C5-6 and C6-7. Normal alignment of the thoracic spine. The thoracic pedicles are intact. No fracture or dislocation or bone destruction. No paraspinal soft tissue thickening. IMPRESSION: Severe degenerative disc disease at C5-6 and C6-7 Negative thoracic spine Reviewed, dictated and finalized at location B.
== END ==
PROVIDERS: PCP Internal Medicine; Visit Provider Nurse Practitioner
DX: M54.6 Pain in thoracic spine (principal); M50.323 Other cervical disc degeneration at C6-C7 level; M50.322 Other cervical disc degeneration at C5-C6 level
CPT/HCPCS: 72072

== ENCOUNTER 2022-08-09 11:15 | Outpatient (RCR) | payer OTHER, SELFPAY ==
--- NOTE | 2022-06-14 16:39 | PTOPEVAL ---
PHYSICAL THERAPY INITIAL EVALUATION. Thank you for referring Oscar Hayes to [facility].? The patient is scheduled to be seen for therapy? 1x/week for 4 weeks. Please review, sign, date and return this plan of care OUMOU. I agree with and certify that the following plan of care is medically necessary. Referring Physician Date Attending Provider: Devika Armenta NP *PT Outpatient Evaluation Start: 06/14/22 Evaluation Information Diagnosis back pain Onset chronic Subjective Information Pt states he was having chest Query Text:As Reported By Patient/ pain, and his medical underwriter Family things this is mechanical. He states a long history of low back with noted degeneration in his cervical and lumbar spine. Pt states cervical degeneration so bad that when looking up he will get brain zaps . He states he is unsure if physical therapy is the answer. Pt has had a cervical laminectomy. Pt reports visible muscle spasms in his lower legs in the evening. Pain Assessment Upper Back Reported Pain Level 5 Pain Description Aching,Dull,Spasms Pain Radiation Left Arm,Right Arm Pain Frequency Chronic,Continuous Lowest Pain Intensity 5 Greatest Pain Intensity 5 Pain Aggravating Factors None Lower Back Reported Pain Level 0 Pain Description Aching,Soreness,Tightness Pain Frequency Chronic,Intermittent Lowest Pain Intensity 0 Greatest Pain Intensity 8 Pain Aggravating Factors Lifting Patient Cervical ROM Cervical Flexion (0-60) 40 active Cervical Extension (0-70) 25 active Cervical Lateral Flexion Right (0-50) 20 active Cervical Lateral Flexion Left (0-50) 8 active Cervical Rotation Right (0-90) 50 active Cervical Rotation Left (0-90) 60 active Lumbar ROM Lumbar Flexion Active Mid Stanton,Ankle Lateral Flexion able to reach lateral knee Query Text:Active Hands to: joint line jean Lateral Rotation Right (0-45) 45 Lateral Rotation Left (0-45) 45 Lumbar Comments Mm spasm in L pec region with R lumbar rotation in sitting. 10cm of lumbar flexion. 5cm of lumbar extension Lower Extremity Muscle Strength Testing General Lower Extremity Strength
--- NOTE | 2022-07-16 11:57 | PTOPPROG ---
Evaluation Information Assessment Status Evaluation Diagnosis back pain Onset chronic Subjective Information Pt states his back was bothering him quiet a bit this morning but has already started to loosen up. He states once he is loosened up he can do almost anything without pain. Pt states he has become more aware of his posture and body mechanics. Pt states he has started working out his upper body again, today he reports increase neck/upper back stiffness. Pt states he would like to go back to his neurologist for his neck pain, he states it is getting worse. Assessment PT Clinical Summary Oscar presents to therapy for his progress report following 4 visits. The first session of therapy has focused more on his low back pain. Today he demonstrates improved lumbar motion, decreased reports of pain, and improved body mechanics with functional movement. He continues to demonstrate decreased cervical active and passive ROM and has significant hypomobility with cervical side glides. He demonstrates a decreased in symptoms with cervical manual distraction. Continuation of skilled therapy services are indicated to address the remaining deficits, to focus on cervical mobility, to manage pain, and to limit impairment. Plan of Care Interventions Electrical Stimulation,Hot Pack/Cold Pack,Manual Therapy,Neuro Re-education,Patient/Caregiver Educati,Therapeutic Activities,Therapeutic Exercise PT Services Indicated Yes Treatment Frequency and 2x/wk for 4 wks Duration These treatments will address the objective and functional deficits as defined above. The patient will be advanced safely and appropriately in order for the patient to progress towards his/her prior level of function. Additional exercises will be introduced and as well as a comprehensive home exercise program upon discharge, if needed, ?to ensure carryover of functional gains achieved in the clinic. This treatment plan has been reviewed and agreement upon by the patient.
--- NOTE | 2022-07-21 12:33 | PCPTNOTE ---
Patient called to cancel due to family emergency.
--- NOTE | 2022-07-28 10:45 | PCPTNOTE ---
Patient reports he got called into work unexpectedly and is getting a on plane to [place].
--- NOTE | 2022-08-13 08:44 | PCPTNOTE ---
Patient called & cancelled scheduled re-evaluation this date due to having to leave town for work. He states he will call back to reschedule.
--- NOTE | 2022-09-01 08:49 | PCPTNOTE ---
Called and spoke with patient regarding not having a re-eval scheduled. He states he has travel for work for the next few weeks and he will follow up after then.
--- NOTE | 2022-12-14 10:23 | PCPTNOTE ---
PHYSICAL THERAPY DISCHARGE SUMMARY Pt called on 08/13/22 to cancel his last appointment d/t being out of town for the week. He stated he would call when he returns, he has not called. Due to lack of attendance with no current visit scheduled he will be discharged at this time. If he needs additional therapy at a later date, he will need a new order.
== END 2022-09-12 23:59 | disposition home or self-care (01) ==
LOC: ANHGOSHPT 11:15
PROVIDERS: PCP Internal Medicine; Visit Provider Nurse Practitioner
DX: M54.2 Cervicalgia (principal); M54.6 Pain in thoracic spine
CPT/HCPCS: 97110; 97112; 97140; 97161; 97530

== ENCOUNTER 2022-10-14 11:23 | Outpatient (CLI) | payer OTHER, SELFPAY ==
[2022-10-15 07:30] LABS: Basophils Absolute Auto 0.1 K/mm3 (0.0-0.1); Eosinophils Absolute Auto 0.1 K/mm3 (0-0.3); Eosinophils Percent Auto 1.7 % (0-4.4); Hematocrit 45.1 % (42.0-52.0); Hemoglobin 14.1 g/dL (14.0-18.0); Immature Granulocyte Absolute 0.01 K/mm3 (0.00-0.031); Immature Granulocyte Percent A 0.2 % (0-0.5); Lymphocytes Absolute Auto 1.49 K/mm3 (0.9-3.2); Lymphocytes Percent Auto 27.4 % (18.3-44.2); Mean Corpuscular HGB Conc 31.3 g/dl (32-36); Mean Corpuscular Hemoglobin 31.3 pg (26-34); Mean Corpuscular Volume 100.2 fl (80-100); Mean Platelet Volume 10.7 fl (7.4-10.4); Monocytes Absolute Auto 0.6 K/mm3 (0.1-0.6); Monocytes Percent Auto 10.7 % (2.6-8.5); Neutrophils Absolute Auto 3.2 K/mm3 (1.3-6.7); Platelet Count Result 273 k/mm3 (150-375); Red Cell Distribution Width 13.2 % (11.5-14.5); White Blood Count 5.4 K/mm3 (4.5-10.0)
[2022-10-15 07:49] LABS: Hemoglobin A1C 5.7 % (<5.7)
[2022-10-15 07:59] LABS: LDL Cholesterol Direct 120 mg/dL
[2022-10-15 08:19] LABS: Free T4 Free Thyroxine 1.37 ng/mL (0.78-2.19)
[2022-10-15 08:45] LABS: Prostate Specific Antigen 0.8 ng/mL (< OR = 4.0)
[2022-10-15 12:06] LABS: Cholesterol 224 mg/dL (0-200); HDL Direct 53 mg/dL; Triglycerides 77 mg/dL (<150)
== END 2022-10-14 11:24 | disposition home or self-care (01) ==
LOC: ANHLAB 11:25
PROVIDERS: PCP Internal Medicine; Visit Provider Internal Medicine
DX: Z13.1 Encounter for screening for diabetes mellitus (principal); Z13.29 Encounter for screening for other suspected endocrine disorder; Z79.899 Other long term (current) drug therapy; I10 Essential (primary) hypertension; Z12.5 Encounter for screening for malignant neoplasm of prostate; Z13.220 Encounter for screening for lipoid disorders; R68.89 Other general symptoms and signs
CPT/HCPCS: 36415; 80061; 83036; 84153; 84439; 84443; 85025; G0103

== ENCOUNTER 2022-10-15 11:23 | Outpatient (CLI) | payer OTHER, SELFPAY ==
[2022-10-15 12:10] LABS: Alanine Aminotransferase 21 U/L (6-50); Albumin Level 4.3 g/dL (3.5-5.1); Alkaline Phosphatase 60 U/L (38-126); Anion Gap 6 mmol/L (8-16); Aspartate Amino Transferase 24 U/L (17-59); Bilirubin,Total 0.6 mg/dL (0.2-1.3); Blood Urea Nitrogen 17 mg/dL (9-20); Calcium 8.6 mg/dL (8.4-10.2); Carbon Dioxide 27 mmol/L (22-30); Chloride 102 mmol/L (98-107); Estimated Glomerular Filt Rate > 60; Glucose 116 mg/dL (65-110); Potassium 4.4 mmol/L (3.4-5.0); Sodium 135 mmol/L (137-145)
== END 2022-10-15 11:24 | disposition home or self-care (01) ==
PROVIDERS: PCP Internal Medicine; Visit Provider Internal Medicine
DX: Z79.899 Other long term (current) drug therapy (principal)
CPT/HCPCS: 36415; 80053

== ENCOUNTER 2023-02-24 08:30 | Outpatient (CLI) | payer OTHER, SELFPAY ==
--- NOTE | 2023-02-24 | EST_ITS ---
Patient Info Name: Oscar Hayes Age: 67 years : 1955 Gender: Male Ht: 73 in Wt: 188 lbs BSA: 2.10 m2 Exam Date: 02/24/2023 9:32 AM Exam Location: [facility] Patient Status: Outpatient Admit Date: 02/24/2023 Staff Ordering Physician: Franklin Masters MD Bulldozer Engineer: Eve Hugo RDCS Attending Provider: Referring Physician: Sonam ALBARRAN; Exercise Technologist: Genny Saldana CT Exercise Physician: Rene Schmitt DO Exam Type: CA stress echo Study Info Indications R07.9 - Chest pain, unspecified Treadmill exercise stress echocardiogram is performed. Summary 1. 1. Negative Boyd exercise stress test for ischemic ST changes by ECG criteria. 2. 2. Good functional capacity, achieving 10 METs of workload. 3. 3. Appropriate HR response to exercise. 4. 4. Appropriate HR recovery at 1 minute post exercise. 5. 5. Negative stress echocardiogram for ischemia by wall motion analysis. 6. 6. Patient informed of the above results. Stress Echo Findings Left Ventricle Appropriate increase in LV endocardial thickening with systole. Appropriate augmentation of contractility with systole. No wall motion abnormality. Left Ventricle Normal LV systolic function, no wall motion abnormality. Protocol: Boyd Stress ECG Details Stage: REST Duration (min): 0 min : 54 sec Speed (mph): 0.0 Grade (%): 0 HR (bpm): 63 SBP (mmHg): 136 DBP (mmHg): 86 METS: --- Stage: REST Duration (min): 17 min : 22 sec Speed (mph): 0.0 Grade (%): 0 HR (bpm): 61 SBP (mmHg): 136 DBP (mmHg): 86 METS: --- Stage: STAGE 1 Duration (min): 1 min : 0 sec Speed (mph): 1.7 Grade (%): 10 HR (bpm): 92 SBP (mmHg): 136 DBP (mmHg): 86 METS: --- Stage: STAGE 1 Duration (min): 2 min : 0 sec Speed (mph): 1.7 Grade (%): 10 HR (bpm): 100 SBP (mmHg): 136 DBP (mmHg): 86 METS: --- Stage: STAGE 1 Duration (min): 3 min : 0 sec Speed (mph): 1.7 Grade (%): 10 HR (bpm): 101 SBP (mmHg): 171 DBP (mmHg): 75 METS: --- Stage: STAGE 2 Duration (min): 1 min : 0 sec Speed (mph): 2.5 Grade (%): 12 HR (bpm): 113 SBP (mmHg): 171 DBP (mmHg): 75 METS: --- Stage: STAGE 2 Duration (min): 2 min : 0 sec Speed (mph): 2.5 Grade (%): 12 HR (bpm): 126 SBP (mmHg): 192 DBP (mmHg): 91 METS: --- Stage: STAGE 2 Duration (min): 3 min : 0 sec Speed (mph): 2.5 Grade (%): 12 HR (bpm): 123 SBP (mmHg): 192 DBP (mmHg): 91 METS: --- Stage: STAGE 3 Duration (min): 1 min : 0 sec Speed (mph): 3.4 Grade (%): 14 HR (bpm): 134 SBP (mmHg): 192 DBP (mmHg): 91 METS: --- Stage: STAGE 3 Duration (min): 1 min : 51 sec Speed (mph): 0.0 Grade (%): 0 HR (bpm): 143 SBP (mmHg): 192 DBP (mmHg): 91 METS: --- Stage: RECOVERY Duration (min): 0 min : 8 sec Speed (mph): 0.0 Grade (%): 0 HR (bpm):
== END 2023-02-24 08:31 | disposition home or self-care (01) ==
LOC: ANHCARD 08:31
PROVIDERS: PCP Internal Medicine; Visit Provider Internal Medicine
DX: R07.89 Other chest pain (principal)
CPT/HCPCS: 93351

== ENCOUNTER 2023-04-18 12:49 | Outpatient (CLI) | payer OTHER, SELFPAY ==
[2023-04-18 13:21] LABS: Alanine Aminotransferase 25 U/L (6-50); Albumin Level 4.7 g/dL (3.5-5.1); Alkaline Phosphatase 61 U/L (38-126); Anion Gap 6 mmol/L (8-16); Aspartate Amino Transferase 27 U/L (17-59); Bilirubin,Total 0.8 mg/dL (0.2-1.3); Blood Urea Nitrogen 21 mg/dL (9-20); Calcium 9.1 mg/dL (8.4-10.2); Carbon Dioxide 33 mmol/L (22-30); Chloride 99 mmol/L (98-107); Cholesterol 215 mg/dL (0-200); Estimated Glomerular Filt Rate 55; Glucose 72 mg/dL (65-110); HDL Direct 76 mg/dL; Magnesium 2.1 mg/dL (1.6-2.3); Potassium 4.4 mmol/L (3.4-5.0); Sodium 138 mmol/L (137-145); Triglycerides 138 mg/dL (<150)
[2023-04-18 13:32] LABS: LDL Cholesterol Direct 110 mg/dL
[2023-04-18 14:10] LABS: Hemoglobin A1C 5.4 % (<5.7)
[2023-04-20 19:35] LABS: Apolipoprotein B 95 mg/dL (<90); CRP, High Sensitivity 0.3 mg/L (***)
[2023-04-20 20:18] LABS: Ionized Calcium 4.9 mg/dL (4.7-5.5)
== END 2023-04-18 12:50 | disposition home or self-care (01) ==
PROVIDERS: PCP Internal Medicine; Visit Provider Internal Medicine
DX: E78.5 Hyperlipidemia, unspecified (principal); Z79.899 Other long term (current) drug therapy; R07.9 Chest pain, unspecified; Z82.49 Family history of ischemic heart disease and other diseases of the circulatory system; R25.2 Cramp and spasm; E16.2 Hypoglycemia, unspecified
CPT/HCPCS: 36415; 80053; 80061; 82172; 82330; 83036; 83735; 86141

== ENCOUNTER → 2023-08-17 09:26 | Outpatient (CLI) | payer OTHER, SELFPAY ==
--- NOTE | ~2023-08-17 | MR_ITS ---
MRI of the cervical spine Clinical History: Radiculopathy Technique: Axial T2-weighted and gradient images, and sagittal T1-weighted, T2-weighted, and STIR cortney ges were acquired. Findings: There is mild reversal normal cervical lordosis. No fracture or subluxation evident. No antonio picious bone marrow signal abnormality seen. At C2-C3, there is no disc bulge or herniation. There is mild left facet arthropathy. There is possib le minimal left neural foraminal narrowing. Right neural foramen preserved. No central canal stenosis or cord compression. At C3-C4, there is probable minimal facet arthropathy bilaterally. Neural foramina are probably prese rved. No disc bulge or herniation. No central canal stenosis or cord compression. At C4-C5, there is no significant disc bulge or herniation. There is probable minimal facet arthropat hy. Bilateral neural foramina are preserved. No central canal stenosis or cord compression. At C5-C6, there is disc osteophyte complex, resulting in mild canal stenosis and cord compression. Th ere is right neural foraminal narrowing. Left neural foramen probably preserved. At C6-C7, there is degenerative disc narrowing and mild facet joint hypertrophy. There is bilateral n eural foraminal narrowing. There is probable mild central canal stenosis without definite cord compre ssion. No abnormal signal seen in the spinal cord. Paravertebral soft tissues are unremarkable. Impression: Mild canal stenosis and cord compression at C5-C6, on a degenerative basis. Mild canal stenosis without definite cord compression at C6-C7. Neural foraminal narrowing at C5-C6 and C6-C7, as above. Reviewed, dictated and finalized at [facility]. Impression: Mild canal stenosis and cord compression at C5-C6, on a degenerative basis. Mild canal stenosis without definite cord compression at C6-C7. Neural foraminal narrowing at C5-C6 and C6-C7, as above.
== END ==
PROVIDERS: PCP Internal Medicine; Visit Provider Nurse Practitioner Family
DX: M54.12 Radiculopathy, cervical region (principal)
CPT/HCPCS: 72141

== ENCOUNTER 2023-11-04 09:15 | Outpatient (CLI) | payer OTHER, SELFPAY ==
--- NOTE | ~2023-11-04 | CT_ITS ---
EXAMINATION: CT sinus wo con DATE: 11/04/2023 09:49 INDICATION: Other specified disorders of the nasal sinuses and nose TECHNIQUE: Computed tomography (CT) of the paranasal sinuses was performed without intravenous contra st. The dose-length product (DLP) was 393.51 mGy-cm. Iterative reconstruction was used. COMPARISON: None FINDINGS: There is normal development and pneumatization of the paranasal sinuses. There is minimal m ucosal thickening of the maxillary sinuses. The frontal, sphenoid, ethmoid, and maxillary sinuses are clear. The bilateral ostiomeatal complexes are patent. Visualized soft tissues are unremarkable. The re are 2 mm of leftward deviation of the nasal septum. There is moderate cervical spondylosis at C5-6 . The osseous structures are otherwise unremarkable. IMPRESSION: 1. Mild mucosal thickening of the maxillary sinuses. Reviewed, dictated and finalized at location B. STANT COACH
== END 2023-11-04 09:16 | disposition home or self-care (01) ==
PROVIDERS: PCP Internal Medicine; Visit Provider Internal Medicine
DX: J34.89 Other specified disorders of nose and nasal sinuses (principal); R68.89 Other general symptoms and signs; R05.9 Cough, unspecified
CPT/HCPCS: 70486

== ENCOUNTER 2024-01-16 12:50 | Emergency (ER) | payer MEDICARE, OTHER, SELFPAY ==
[2024-01-16] VITALS (7 sets, daily range): BP systolic 136–167; BP diastolic 78–99; PULSE 60–71; RESP 8–22; TEMP 36.3; O2SAT 94–100
--- NOTE | ~2024-01-16 | XR_ITS ---
EXAMINATION: XR chest 2V DATE: 01/16/2024 13:39 INDICATION: Chest pain TECHNIQUE: PA and lateral views of the chest are obtained. COMPARISON: 01/01/2022 FINDINGS: The lungs are free of acute opacities. No pleural effusion or pneumothorax. The cardiomedia stinal silhouette is normal. The visualized bones and soft tissues are unremarkable. IMPRESSION: 1. No acute cardiopulmonary abnormality. Reviewed, dictated and finalized at location B. OR BUSINESS DEVELOPMENT MANAGER
--- NOTE | 2024-01-16 12:51 | ECG_ITS ---
Measurements Intervals [place] Rate: 62 P: 65 OH: 164 QRS: 46 QRSD: 89 T: 48 QT: 386 QTc: 394 Interpretive Statements SINUS RHYTHM BASELINE WANDER- III, V5-V6 NORMAL ECG COMPARED TO ECG 01/22/2021 13:30:04 NO SIGNIFICANT CHANGES Electronically Signed On 01-16-2024 13:09:20 SENIOR WEB DEVELOPER by Rene Schmitt D.O.
[2024-01-16 13:15] LABS: Alanine Aminotransferase 26 U/L (6-50); Albumin Level 4.4 g/dL (3.5-5.1); Alkaline Phosphatase 59 U/L (38-126); Anion Gap 6 mmol/L (8-16); Aspartate Amino Transferase 38 U/L (17-59); Bilirubin,Total 0.9 mg/dL (0.2-1.3); Blood Urea Nitrogen 13 mg/dL (9-20); Calcium 9.3 mg/dL (8.4-10.2); Carbon Dioxide 24 mmol/L (22-30); Chloride 101 mmol/L (98-107); Estimated CRCL calculation 74 ml/min; Estimated Glomerular Filt Rate > 60; Glucose 95 mg/dL (65-110); Lipase 40 U/L (23-300); Potassium 4.5 mmol/L (3.4-5.0); Sodium 131 mmol/L (137-145)
[2024-01-16 13:17] LABS: Basophils Absolute Auto 0.1 K/mm3 (0.0-0.1); Basophils Percent Auto 1.2 % (0.2-1.2); Eosinophils Percent Auto 0.5 % (0-4.4); Hematocrit 43.4 % (42.0-52.0); Immature Granulocyte Absolute 0.02 K/mm3 (0.00-0.031); Immature Granulocyte Percent A 0.3 % (0-0.5); Lymphocytes Absolute Auto 1.29 K/mm3 (0.9-3.2); Lymphocytes Percent Auto 17.3 % (18.3-44.2); Mean Corpuscular HGB Conc 32.3 g/dl (32-36); Mean Corpuscular Hemoglobin 30.4 pg (26-34); Mean Corpuscular Volume 94.3 fl (80-100); Mean Platelet Volume 9.5 fl (7.4-10.4); Monocytes Absolute Auto 0.6 K/mm3 (0.1-0.6); Neutrophils Absolute Auto 5.4 K/mm3 (1.3-6.7); Neutrophils Percent Auto 72.7 % (45.5-73.1); Platelet Count Result 229 k/mm3 (150-375); Red Cell Distribution Width 12.7 % (11.5-14.5); White Blood Count 7.5 K/mm3 (4.5-10.0)
[2024-01-16 13:26] LABS: Prothrombin Time 13.3 Seconds (11.1-14.7)
[2024-01-16 13:27] LABS: Partial Thromboplastin Time 28.3 SECONDS (22.3-36.8); Troponin I < 0.012 ng/mL (0.000-0.034)
--- NOTE | 2024-01-16 15:12 | ECG_ITS ---
Measurements Intervals [place] Rate: 59 P: 54 OH: 160 QRS: 48 QRSD: 94 T: 50 QT: 403 QTc: 400 Interpretive Statements SINUS BRADYCARDIA BASELINE ARTIFACT- I, III, AVR, AVL BORDERLINE ECG COMPARED TO ECG 01/16/2024 12:55:21 SINUS BRADYCARDIA NOW PRESENT Electronically Signed On 01-16-2024 16:53:18 STEEL LAYER by Rene Schmitt D.O.
[2024-01-16 15:26] LABS: Magnesium 2.2 mg/dL (1.6-2.3)
--- NOTE | 2024-01-16 15:28 | ED.GENADULT ---
HPI - General Adult General Chief complaint: Chest Pain Stated complaint: heart discomfort Time Seen by Provider: 01/16/24 14:28 History of Present Illness HPI narrative: 68-year-old male present to the emergency department for evaluation of heart palpitations. Patient states he felt like he was starting to develop an upper respiratory infection last night and did take a lot of vitamin-C. Patient felt he was having increased heart palpitations this morning so he did take an electrolyte mixture and added additional magnesium to this. Patient states since arriving to the emergency department he does feel improved. Patient has no prior history of DE did have a recent stress test. Patient follows up with Cardiology at [facility]. Patient does have prior history of paroxysmal AFib and does take metoprolol. Related Data Allergies Allergy/AdvReac Type Severity Reaction Status Date / Time No Known Allergies Allergy Verified 01/16/24 14:44 Review of Systems Review of Systems: All systems reviewed & are unremarkable except as noted in HPI and below PMFSH Past Medical History Medical History Abnormal flow volume loop Atrial fibrillation BMI 26.0-26.9,adult BMI 27.0-27.9,adult Broken ankle 12/2020 Chest discomfort Cough Dyslipidemia Dysphagia Dysphagia Encounter for preventive health examination Encounter for routine adult health examination with abnormal findings Fatigue Follow up Fracture of lateral malleolus of right ankle Headache Hearing loss in right ear History of second hand smoke exposure Hypersomnolence Impaired functional mobility, balance, gait, and endurance Multiple episodes of hypoglycemia Neck pain Neuralgia and neuritis New daily persistent headache (ndph) Nocturia Non-smoker On usp drug therapy Prostate cancer screening Screening for endocrine disorder Screening for lipid disorders Screening PSA (prostate specific antigen) Sleep disturbance Spinal stenosis Thoracic back pain URI (upper respiratory infection) Vitamin D deficiency Vitreous detachment of left eye Weakness Surgical History Surgical History H/O laminectomy No history of previous surgery Family History Family History Mother Cerebrovascular accident Father Malignant neoplasm of prostate Atrial fibrillation Social History Social History Social History: Caffeine-coffee daily Smoking status: Never smoker Second hand tobacco smoke exposure: No Alcohol intake: current Alcohol use details: rarely-wine Substance use: never Substance use type: does not use Lack of Transportation: No Lack of Food: Never True Current Housing: I Have Housing Concerned About Future Housing: No Difficulty Paying Gas/Electric Bills: No Difficulty Paying for Meds: No Currently Unemployed: No Education: Bachelor's Degree Difficulty w/ Childcare or Family Care: No Living arrangements: with family Spiritual care concerns: No Exam Narrative: APPEARANCE: Well appearing, no pain, no distress, well-nourished. HEAD: normocephalic, atraumatic. EYES: PERRLA/EOMI, conjunctivae clear. NOSE: Normal no drainage EARS:TMS clear with good light reflex. THROAT: Pharynx clear, no exudate. NECK: Supple. No adenopathy, no masses. RESPIRATORY: Airway patent, respirations nonlabored. Clear to auscultation bilaterally, no rales, rhonchi, wheezing. CARDIOVASCULAR: Regular rate and rhythm without murmurs rubs or gallops. ABDOMINAL: Soft, nontender, nondistended, normal bowel sounds MUSCULOSKELETAL: Moves all extremities. Strength/ROM intact, No edema, No calf tenderness. NEURO: Alert. Cranial nerves II through XII intact. Grossly intact SKIN: Warm, dry. Normal Color Course Course Emergency Course: Balbir harris
[2024-01-16 15:44] LABS: Influenza A QL RT-PCR Negative (Negative); Influenza B QL RT-PCR Negative (Negative); RSV RNA, RT-PCR Negative (Negative); SARS-CoV-2 RNA PCR Negative (Negative)
[2024-01-16 16:30] LABS: Troponin I < 0.012 ng/mL (0.000-0.034)
== END 2024-01-16 17:00 | disposition home or self-care (01) ==
PROVIDERS: Emergency Medicine; Emergency Provider Emergency Medicine; PCP Internal Medicine
DX: R00.2 Palpitations (principal); Z20.822 Contact with and (suspected) exposure to COVID-19; I48.0 Paroxysmal atrial fibrillation; E78.5 Hyperlipidemia, unspecified; E55.9 Vitamin D deficiency, unspecified
CPT/HCPCS: 36415; 71046; 80053; 83690; 83735; 84484; 85025; 85610; 85730; 87637; 93005; 99284

== ENCOUNTER 2024-01-20 15:12 | Outpatient (CLI) | payer MEDICARE, OTHER, SELFPAY ==
[2024-01-20 16:06] LABS: Basophils Absolute Auto 0.1 K/mm3 (0.0-0.1); Basophils Percent Auto 1.2 % (0.2-1.2); Eosinophils Absolute Auto 0.1 K/mm3 (0-0.3); Eosinophils Percent Auto 0.9 % (0-4.4); Hematocrit 42.4 % (42.0-52.0); Immature Granulocyte Absolute 0.02 K/mm3 (0.00-0.031); Immature Granulocyte Percent A 0.3 % (0-0.5); Lymphocytes Absolute Auto 1.37 K/mm3 (0.9-3.2); Lymphocytes Percent Auto 18.6 % (18.3-44.2); Mean Corpuscular Hemoglobin 30.6 pg (26-34); Mean Corpuscular Volume 92.6 fl (80-100); Monocytes Absolute Auto 0.9 K/mm3 (0.1-0.6); Monocytes Percent Auto 12.1 % (2.6-8.5); Neutrophils Absolute Auto 4.9 K/mm3 (1.3-6.7); Neutrophils Percent Auto 66.9 % (45.5-73.1); Platelet Count Result 248 k/mm3 (150-375); Red Blood Count 4.58 M/mm3 (4.6-6.20); Red Cell Distribution Width 12.6 % (11.5-14.5); White Blood Count 7.4 K/mm3 (4.5-10.0)
[2024-01-20 16:19] LABS: Alanine Aminotransferase 21 U/L (6-50); Albumin Level 4.4 g/dL (3.5-5.1); Alkaline Phosphatase 50 U/L (38-126); Anion Gap 4 mmol/L (8-16); Aspartate Amino Transferase 26 U/L (17-59); Bilirubin,Total 1.1 mg/dL (0.2-1.3); Blood Urea Nitrogen 14 mg/dL (9-20); Calcium 9.2 mg/dL (8.4-10.2); Carbon Dioxide 31 mmol/L (22-30); Chloride 97 mmol/L (98-107); Cholesterol 206 mg/dL (0-200); Estimated Glomerular Filt Rate > 60; Glucose 90 mg/dL (65-110); HDL Direct 66 mg/dL; Potassium 4.1 mmol/L (3.4-5.0); Sodium 132 mmol/L (137-145); Triglycerides 67 mg/dL (<150)
[2024-01-20 16:22] LABS: Hemoglobin A1C 5.6 % (<5.7)
[2024-01-20 16:30] LABS: LDL Cholesterol Direct 119 mg/dL
[2024-01-20 16:57] LABS: Free T4 Free Thyroxine 1.39 ng/mL (0.78-2.19)
[2024-01-20 17:53] LABS: Prostate Specific Antigen 0.7 ng/mL (< OR = 4.0)
== END 2024-01-20 15:13 | disposition home or self-care (01) ==
PROVIDERS: PCP Internal Medicine; Visit Provider Internal Medicine
DX: E16.2 Hypoglycemia, unspecified (principal); Z79.899 Other long term (current) drug therapy; E78.5 Hyperlipidemia, unspecified; Z12.5 Encounter for screening for malignant neoplasm of prostate; Z13.29 Encounter for screening for other suspected endocrine disorder; I10 Essential (primary) hypertension
CPT/HCPCS: 36415; 80053; 80061; 83036; 84153; 84439; 84443; 85025; G0103

== ENCOUNTER 2024-02-02 08:24 | Outpatient (CLI) | payer MEDICARE, OTHER, SELFPAY ==
--- NOTE | ~2024-02-02 | US_ITS ---
Renal-Bladder ultrasound Clinical History: Palpitations Technique: Real-time sonographic imaging of the kidneys and urinary bladder was performed. Findings: The right kidney measures 10.6 cm in length and the left kidney measures 9.8 cm. There is n o hydronephrosis or renal calculus identified. Renal cortical echogenicity is within normal limits. N o renal mass lesion is identified. The urinary bladder is moderately distended at the time of this exam. No intraluminal echoes are iden tified. No abnormal wall thickening is seen. Impression: Unremarkable ultrasound of the kidneys and urinary bladder. Reviewed, dictated and finalized at location . Impression: Unremarkable ultrasound of the kidneys and urinary bladder.
--- NOTE | ~2024-02-02 | US_ITS ---
EXAMINATION: US retroperitoneal duplex ltd DATE: 02/02/2024 09:46 INDICATION: Central (primary) hypertension TECHNIQUE: Multiple grayscale, color Doppler, and pulsed Doppler images of the kidneys and renal gunner chalino were obtained. COMPARISON: None. FINDINGS: The right renal artery peak systolic velocity is 83 cm/s in the proximal segment, 90 cm/s in the mid segment, and 86 cm/s in the distal segment. The left renal artery peak systolic velocity is 104 cm/s in the proximal segment, 64 cm/s in the mid segment, and 39 cm/s in the distal segment. IMPRESSION: 1. No Doppler evidence of renal artery stenosis. Reviewed, dictated and finalized at location A.
== END 2024-02-02 08:25 | disposition home or self-care (01) ==
LOC: ANHIMG 08:28
PROVIDERS: PCP Internal Medicine; Visit Provider Internal Medicine
DX: I10 Essential (primary) hypertension (principal); R00.2 Palpitations; R53.83 Other fatigue
CPT/HCPCS: 76775; 93976

== ENCOUNTER 2024-06-12 09:16 | Outpatient (CLI) | payer MEDICARE, OTHER, SELFPAY ==
[2024-06-15 00:19] LABS: Testosterone Total 502 ng/dL (250-1100)
== END 2024-06-12 09:17 | disposition home or self-care (01) ==
PROVIDERS: PCP Internal Medicine; Visit Provider Internal Medicine
DX: E29.1 Testicular hypofunction (principal)
CPT/HCPCS: 36415; 84403

== ENCOUNTER 2024-06-13 08:39 | Outpatient (CLI) | payer MEDICARE, OTHER, SELFPAY ==
[2024-06-16 01:38] LABS: Testosterone Total 563 ng/dL (250-1100)
== END 2024-06-13 08:40 | disposition home or self-care (01) ==
LOC: ANHLAB 08:40
PROVIDERS: PCP Internal Medicine; Visit Provider Internal Medicine
DX: E29.1 Testicular hypofunction (principal)
CPT/HCPCS: 36415; 84403

== ENCOUNTER 2024-08-08 09:40 | Outpatient (CLI) | payer MEDICARE, OTHER, SELFPAY ==
[2024-08-08 10:05] LABS: Basophils Absolute Auto 0.1 K/mm3 (0.0-0.1); Basophils Percent Auto 2.2 % (0.2-1.2); Eosinophils Absolute Auto 0.1 K/mm3 (0-0.3); Hematocrit 43.9 % (42.0-52.0); Hemoglobin 14.7 g/dL (14.0-18.0); Immature Granulocyte Absolute 0.01 K/mm3 (0.00-0.031); Immature Granulocyte Percent A 0.2 % (0-0.5); Lymphocytes Absolute Auto 1.26 K/mm3 (0.9-3.2); Lymphocytes Percent Auto 28.3 % (18.3-44.2); Mean Corpuscular HGB Conc 33.5 g/dl (32-36); Mean Corpuscular Hemoglobin 31.5 pg (26-34); Mean Platelet Volume 9.3 fl (7.4-10.4); Monocytes Absolute Auto 0.6 K/mm3 (0.1-0.6); Monocytes Percent Auto 13.5 % (2.6-8.5); Neutrophils Absolute Auto 2.4 K/mm3 (1.3-6.7); Neutrophils Percent Auto 53.8 % (45.5-73.1); Platelet Count Result 234 k/mm3 (150-375); Red Blood Count 4.67 M/mm3 (4.6-6.20); Red Cell Distribution Width 12.9 % (11.5-14.5); White Blood Count 4.5 K/mm3 (4.5-10.0)
[2024-08-08 10:16] LABS: Alanine Aminotransferase 25 U/L (6-50); Albumin Level 4.5 g/dL (3.5-5.1); Alkaline Phosphatase 55 U/L (38-126); Anion Gap 6 mmol/L (4-12); Aspartate Amino Transferase 27 U/L (17-59); Bilirubin,Total 1.1 mg/dL (0.2-1.3); Blood Urea Nitrogen 12 mg/dL (9-20); CRP < 0.5 mg/dL (<1.0); Calcium 9.3 mg/dL (8.4-10.2); Carbon Dioxide 29 mmol/L (22-30); Chloride 101 mmol/L (98-107); Cholesterol 199 mg/dL (0-200); Estimated Glomerular Filt Rate > 60; Glucose 92 mg/dL (65-110); HDL Direct 72 mg/dL; Magnesium 2.1 mg/dL (1.6-2.3); Potassium 4.2 mmol/L (3.4-5.0); Sodium 136 mmol/L (137-145); Triglycerides 91 mg/dL (<150)
[2024-08-08 10:23] LABS: NT Pro B Type Natriuretic Pept 27 pg/mL (19.9-100)
[2024-08-08 10:25] LABS: LDL Cholesterol Direct 100 mg/dL
[2024-08-08 10:37] LABS: Free T4 Free Thyroxine 1.19 ng/mL (0.78-2.19); Vitamin D 25 Hydroxy 49.8 ng/mL
[2024-08-08 10:44] LABS: Hemoglobin A1C 5.6 % (<5.7)
[2024-08-08 20:46] LABS: Iron 132 ug/dL (49-181)
[2024-08-08 20:57] LABS: Percent Iron Saturation 42 % (20-50)
[2024-08-10 06:54] LABS: Triiodothyronine T3 Free 3.2 pg/mL (2.3-4.2)
== END 2024-08-08 09:41 | disposition home or self-care (01) ==
PROVIDERS: PCP Internal Medicine; Visit Provider Internal Medicine
DX: Z13.29 Encounter for screening for other suspected endocrine disorder (principal); Z79.899 Other long term (current) drug therapy; E16.2 Hypoglycemia, unspecified; E55.9 Vitamin D deficiency, unspecified; E56.9 Vitamin deficiency, unspecified; E78.5 Hyperlipidemia, unspecified; G47.10 Hypersomnia, unspecified; I10 Essential (primary) hypertension; I47.10 Supraventricular tachycardia, unspecified; I48.0 Paroxysmal atrial fibrillation; R53.83 Other fatigue; Z00.00 Encounter for general adult medical examination without abnormal findings; Z00.01 Encounter for general adult medical examination with abnormal findings; Z13.1 Encounter for screening for diabetes mellitus; R00.2 Palpitations; I48.91 Unspecified atrial fibrillation; R06.00 Dyspnea, unspecified
CPT/HCPCS: 36415; 80053; 80061; 82306; 82728; 83036; 83090; 83540; 83550; 83735; 83880; 84439; 84443; 84481; 85025; 86140

== ENCOUNTER 2024-10-01 00:31 | Day surgery (SDC) | payer MEDICARE, OTHER, SELFPAY ==
[2024-09-19 09:16] VITALS: BMI 26.1
[2024-10-01 08:41] VITALS: BP 129/87; RESP 18; O2SAT 100
--- NOTE | 2024-10-01 09:01 | P.PNAN_ITS ---
Anes - Initial Pre Proc Eval Procedure: Operation Date: 10/01/24 10:00 Proposed Procedures p Colonoscopy - Bradford Haider MD Date/Time: 10/01/24 09:01 Surgeon: Bradford Haider MD Pre Op Diagnosis: family hx cancer Patient Data Age: 69 Gender: M Height: 1.8 m Weight: 83.7 kg Last Vital Signs Resp 18 10/01/24 08:41 BP 129/87 10/01/24 08:41 Pulse Ox 100 10/01/24 08:41 O2 Del Method Room Air 10/01/24 08:41 Allergies Allergy/AdvReac Type Severity Reaction Status Date / Time No Known Allergies Allergy Verified 10/01/24 08:40 Home Medications Medication Instructions Recorded Confirmed Type folic acid 1 mg tablet 1 mg PO DAILY 08/14/24 10/01/24 History mecobalamin (vitamin B12) 1,000 1,000 mcg PO DAILY 08/14/24 10/01/24 History mcg chewable tablet acyclovir 800 mg tablet 800 mg PO TID PRN prn use #30 tabs 08/21/24 10/01/24 Rx lorazepam 0.5 mg tablet 0.5 mg PO TID PRN anxiety #90 tabs 08/21/24 10/01/24 Rx metoprolol succinate 25 mg 25 mg .Route .COMPLEX PRN A Fib 08/21/24 10/01/24 Rx tablet,extended release 24 hr #90 tabs tadalafil 5 mg tablet (Cialis) 5 mg PO DAILY PRN sexual activity 08/21/24 10/01/24 Rx #30 tabs Patient hx anesthesia problems: none Family hx anesthesia problems: none Results Review: All pre-operative results and documents have been reviewed as part of the pre- operative evaluation. [facility] Past Medical History Medical History Abnormal flow volume loop Anxiety Atrial fibrillation BMI 26.0-26.9,adult BMI 27.0-27.9,adult Broken ankle 12/2020 Chest discomfort Colon cancer screening Cough Dyslipidemia Dysphagia Dysphagia Encounter for preventive health examination Encounter for routine adult health examination with abnormal findings Encounter for routine adult health examination without abnormal findings Fatigue FHx: colon cancer Follow up Fracture of lateral malleolus of right ankle Headache Hearing loss in right ear History of second hand smoke exposure Hypersomnolence Impaired functional mobility, balance, gait, and endurance Multiple episodes of hypoglycemia Neck pain Neuralgia and neuritis New daily persistent headache (ndph) Nocturia Non-smoker On termite control service representative drug therapy Prostate cancer screening Rhinitis Screening for endocrine disorder Screening for lipid disorders Screening PSA (prostate specific antigen) Sleep disturbance Spinal stenosis SVT (supraventricular tachycardia) Thoracic back pain URI (upper respiratory infection) Vitamin D deficiency Vitreous detachment of left eye Weakness Surgical History Surgical History (Reviewed 10/01/24 @ 09: by Raghu Sainz MD) H/O laminectomy No history of previous surgery Family History Family History Mother Cerebrovascular accident Colon cancer, Onset Age: 88 Father Malignant neoplasm of prostate Atrial fibrillation Social History Social History (Reviewed 10/01/24 @ 09: by Raghu Sainz MD) Social History: Caffeine-coffee daily Smoking status: Never smoker Second hand tobacco smoke exposure: No Alcohol intake: current Drinks per week: 1 Alcohol use details: rarely-wine Substance use: never Substance use type: does not use Lack of Transportation: No Lack of Food: Never True Current Housing: I Have Housing Concerned About Future Housing: No Difficulty Paying Gas/Electric Bills: No Difficulty Paying for Meds: No Currently Unemployed: No Education: Bachelor's Degree Difficulty w/ Childcare or Family Care: No Living arrangements: with family Spiritual care concerns: No Anes - Eval Final PreProcedure Day of Procedure 10/01/24 09:01 Patient weight: normal Heart: regular rate and rhythm Lungs: clear to auscultation Airway: Mallampati scale class II Neurological: alert and oriented Last oral intake: >/= 8 hours ASA classification: III Emergent: no Anesthetic plan: proceed Anesthesia type and monitoring: general GIVS and standard monitoring Results Review: All pre-operative results and documents have been reviewed as part of the pre- operative evaluation. Informed Consent: The patient's anesthetic plan and its attendant risks and benefits were discussed with the patient/family/POA. Questions were solicited and answers provided to the satisfaction of the patient/family/POA.
[2024-10-01] MEDS: LACTATED RINGERS 1,000 ML 150 ML IV CONT (09:03)
--- NOTE | 2024-10-01 09:33 | P.HP_ITS ---
H&P: HPI History of Present Illness Date/Time: 10/01/24 09:33 Chief Complaint: Positive Cologuard -family history of colorectal cancer. Narrative: This patient has family history of colorectal cancer. In addition, he has been recently found to have a Cologuard positive test. Review of Systems Review of Systems: All systems reviewed & are unremarkable except as noted in HPI and below PMFSH Past Medical History Medical History Abnormal flow volume loop Anxiety Atrial fibrillation BMI 26.0-26.9,adult BMI 27.0-27.9,adult Broken ankle 12/2020 Chest discomfort Colon cancer screening Cough Dyslipidemia Dysphagia Dysphagia Encounter for preventive health examination Encounter for routine adult health examination with abnormal findings Encounter for routine adult health examination without abnormal findings Fatigue FHx: colon cancer Follow up Fracture of lateral malleolus of right ankle Headache Hearing loss in right ear History of second hand smoke exposure Hypersomnolence Impaired functional mobility, balance, gait, and endurance Multiple episodes of hypoglycemia Neck pain Neuralgia and neuritis New daily persistent headache (ndph) Nocturia Non-smoker On [facility] drug therapy Prostate cancer screening Rhinitis Screening for endocrine disorder Screening for lipid disorders Screening PSA (prostate specific antigen) Sleep disturbance Spinal stenosis SVT (supraventricular tachycardia) Thoracic back pain URI (upper respiratory infection) Vitamin D deficiency Vitreous detachment of left eye Weakness Surgical History Surgical History H/O laminectomy No history of previous surgery Family History Family History Mother Cerebrovascular accident Colon cancer, Onset Age: 88 Father Malignant neoplasm of prostate Atrial fibrillation Social History Social History Social History: Caffeine-coffee daily Smoking status: Never smoker Second hand tobacco smoke exposure: No Alcohol intake: current Drinks per week: 1 Alcohol use details: rarely-wine Substance use: never Substance use type: does not use Lack of Transportation: No Lack of Food: Never True Current Housing: I Have Housing Concerned About Future Housing: No Difficulty Paying Gas/Electric Bills: No Difficulty Paying for Meds: No Currently Unemployed: No Education: Bachelor's Degree Difficulty w/ Childcare or Family Care: No Living arrangements: with family Spiritual care concerns: No Meds Home Medications and Allergies Home Medications Medication Instructions Recorded Confirmed Type folic acid 1 mg tablet 1 mg PO DAILY 08/14/24 10/01/24 History mecobalamin (vitamin B12) 1,000 1,000 mcg PO DAILY 08/14/24 10/01/24 History mcg chewable tablet acyclovir 800 mg tablet 800 mg PO TID PRN prn use #30 tabs 08/21/24 10/01/24 Rx lorazepam 0.5 mg tablet 0.5 mg PO TID PRN anxiety #90 tabs 08/21/24 10/01/24 Rx metoprolol succinate 25 mg 25 mg .Route .COMPLEX PRN A Fib 08/21/24 10/01/24 Rx tablet,extended release 24 hr #90 tabs tadalafil 5 mg tablet (Cialis) 5 mg PO DAILY PRN sexual activity 08/21/24 10/01/24 Rx #30 tabs Allergies Allergy/AdvReac Type Severity Reaction Status Date / Time No Known Allergies Allergy Verified 10/01/24 08:40 Vital Signs Vital Signs - 24 hr 10/01/24 08:41 Respiratory Rate 18 Blood Pressure 129/87 Pulse Oximetry 100 Oxygen Delivery Room Air Exam Const: General: cooperative and healthy appearing Resp: Effort & Inspection: normal respiratory effort and able to speak in complete sentences Auscultation: clear to auscultation bilaterally Cardio: Rate: regular rate Rhythm: regular rhythm GI: Inspection: normal to inspection GI Palp: No No hepatosplenomegaly present Auscultation: normal bowel sounds Rectal Exam: deferred Skin: General skin exam: normal color Psych: Appearance: grossly normal Mental Status: mental status grossly normal Assessment and Plan Assessment and plan (1) FHx: colon cancer: Code(s): Z80.0 - Family history of malignant neoplasm of digestive organs Status: Acute Assessment and Plan: The patient is deemed a good candidate for the procedure. Consent signed. Will proceed. (2) Positive colorectal cancer screening using Cologuard test: Code(s): R19.5 - Other fecal abnormalities Status: Acute
[2024-10-01 09:57] VITALS: BP 112/71; PULSE 60; RESP 16; O2SAT 98
[2024-10-01 10:07] VITALS: BP 113/68; PULSE 62; RESP 19; O2SAT 98
[2024-10-01 10:17] VITALS: BP 124/80; PULSE 60; RESP 20; O2SAT 98
== END 2024-10-01 10:27 | disposition home or self-care (01) ==
PROVIDERS: PCP Internal Medicine; Visit Provider Internal Medicine Gastroenterology
PROC: 0DJD8ZZ Inspection of Lower Intestinal Tract, Via Natural or Artificial Opening Endoscopic (ICD-10-PCS; CPT 45378; principal; 2024-10-01 10:00)
DX: R19.5 Other fecal abnormalities (principal); K64.8 Other hemorrhoids; Z80.0 Family history of malignant neoplasm of digestive organs; F41.9 Anxiety disorder, unspecified
CPT/HCPCS: 45378; J2704; J7120

== ENCOUNTER 2025-02-28 09:58 | Outpatient (CLI) | payer MEDICARE, OTHER, SELFPAY ==
--- NOTE | ~2025-02-28 | XR_ITS ---
XR sacroiliac joints min 3V Ordering provider: Franklin Masters MD History: . M54.50 - Low back pain, unspecified . Comparison: None. FINDINGS: BONES: No acute fracture or dislocation. Sclerotic areas seen in the left iliac bone which may be [place]. Follow-up advised. JOINTS: The bilateral sacroiliac joint spaces appear well maintained. No bony fusion of the sacroilia c joints or bony erosions. SOFT TISSUES: Unremarkable. IMPRESSION: NO ACUTE OSSEOUS ABNORMALITY. NORMAL SACROILIAC JOINTS. Sclerotic lesion in the left iliac bone. Follow-up in 3-6 months advised. Reviewed, dictated and finalized at location A.
--- NOTE | ~2025-02-28 | XR_ITS ---
Lumbosacral Spine: AP and lateral views Clinical History: Pain Findings: The normal lordotic curve is maintained. The vertebral bodies and posterior elements are i ntact. There is moderate degenerative disc narrowing at L4-L5 and L5-S1. There is moderate to advance d facet arthropathy at L4-L5 and L5-S1. No instability on flexion or extension. The sacroiliac joint s are normally outlined. Impression: Moderate to advanced degenerative spondylosis at L4-L5 and L5-S1. Reviewed, dictated and finalized at location M. Impression: Moderate to advanced degenerative spondylosis at L4-L5 and L5-S1.
--- OUTSIDE RECORDS SUMMARY | 2025-02-28 10:41 | XMS_ITS | Clinical Summary ---
Author Organization [facility] Address [address] [place] [address] Phone Care Team Providers Care Electrical Line Worker Name Role Phone Tyravishal Yary DOOLEY Primary Care Provider [phone] Allergies No known active allergies Medications metoprolol tartrate (LOPRESSOR) 50 mg tablet Take 50 mg by mouth daily. Active acyclovir (ZOVIRAX) 800 mg tablet acyclovir 800 mg tablet Active coenzyme Q10 100 mg Capsule Take 400 mg by mouth. Active multivits n-wsr-guosvds gluc 9 mg iron/15 mL Liquid Take 15 mL by mouth. Active krill oil 500 mg Capsule Take 1 Capsule by mouth. Active garlic 1,000 mg Capsule Take 1 Capsule by mouth. Active azelastine (ASTELIN) 137 mcg/actuation nasal spray Administer 2 Sprays in each nostril 2 times daily. 30 mL 11 0 Active famotidine (PEPCID) 40 mg tablet Take 1 Tablet (40 mg) by mouth 2 times daily. 60 Tablet 11 0 Active budesonide-glyc opyr-formoterol (Breztri Aerosphere) 160-9-4.8 mcg/actuation HFA Aerosol InhalerIndicati ons:LOT [id number] Take 2 Puffs by inhalation 2 times daily. 118 Gram 0 Active Active Problems Patient Care Coordination No te Formatting of this note migh t be different from the original. Felice Ma MD--Material Stress Tester ([facility] @ ) No known active problems Immunizations Immunization Administration Dates Next Due PNEUMOVAX (PPSV23) pneumococ kathe polysaccharide 23-valent Vaccine 08/14/2019 Family History Medical History Relation Name Comments Cancer Father arrhythmia Heart Disease Father arrhythmia Other Father arrhythmia No Known Problems Mother Relation Name Status Comments Father arrhythmia prostate cancer Mother Alive Social History Tobacco Use Types Packs/Day Years Used Date Smoking Tobacco: Never Smokeless Tobacco: Never Alcohol Use Standard Drinks/Week Comments Not Currently 0 (1 standard drink = 0.6 oz pur e alcohol) Sex and Gender Information Value Date Recorded Sex Assigned at Not on file Legal Sex Male 10:06 AM CDT Gender Identity Not on file Sexual Orientation Not on file Last Filed Vital Signs Vital Sign Reading Time Taken Comments Blood Pressure 118/60 09/04/2020 2:15 PM CDT Pulse 63 09/04/2020 2:15 PM CDT Temperature 36.5 C (97.7 F) 06/25/2020 9:56 AM CDT Respiratory Rate 16 09/04/2020 2:15 PM CDT Oxygen Saturation 96% 09/04/2020 2:15 PM CDT RA Inhaled Oxygen Concentration - - Weight 93 kg (205 lb) 09/04/2020 2:15 PM CDT Height 180.3 cm (5' 11 ) 09/04/2020 2:15 PM CDT Body Mass Index 28.59 09/04/2020 2:15 PM CDT Plan of Treatment Health Maintenance Due Date Last Done Comments COLORECTAL SCREENING 2001 Colorectal Cancer Screening 2001 FIT-DNA Q 3 years 2001 FIT/FOBT Q 1 year 2001 Flex Sig/CT Colonography Q 5 years 2001 ZOSTER VACCINE (1 of 2) 2006 PNEUMOCOCCAL VACCINE 50+ YEARS (2 of 2 - PCV) 08/14/20 20 08/14/2019 DTAP/TDAP/TD VACCINES (2 - Td or Tdap) 11/14/2020 INFLUENZA VACCINE (#1) 2024 RSV VACCINE (60+ or ) (1 - 1-dose 75+ series) 2031 [place] [id number] [place] [id number] Care Teams Electrical Line Worker Relationship Specialty Start Date End Date Yary Joe PA PCP - General Physician Switchboard Operator Helper 06/25/20
--- OUTSIDE RECORDS SUMMARY | 2025-02-28 10:41 | XMS_ITS | Clinical Summary ---
Author Organization [facility] Address [address] [place] [address] Care Team Providers Care Plastics Engineering Teacher Name Role Phone Vinayak Wetzel DO Primary Care Provider [phone] Source Comments [facility]),non-owned Affiliates and Associated Physician Practices is amultiple site organization consisting of ambulatory clinics and hospital sitesin [place], [place], [place] and [place]. This disclosure is being madepursuant to the Care Everywhere program and may not contain all information available regarding this patient. Last updated 18.[facility]) Allergies No known active allergies Medications * Be aware that medications may not be up to date on this document. Alwaysverify current medications with the patient. acyclovir (ZOVIRAX) 800 MG tablet Take 1 (one) tablet by mouth as needed Active coenzyme Q10 100 MG capsule Take 400 (four hundred) mg by mouth once daily Active Krill Oil (OMEGA-3) 500 MG CAPS Take 1 capsule by mouth once daily Active metoprolol succinate XL 24hr (TOPROL XL) 50 MG tablet Take 1 (one) tablet by mouth once daily 07/14/2021 Active Active Problems Problem Noted Date Diagnosed Date Chronic cough 08/23/2018 Overview (01/14/2022): Last Assessment & Plan: The differential diagnosis for cough includes: - post-nasal drainage/upper airway cough syndrome - GERD - cough-variant asthma - chronic aspiration - post-viral/infectious cough syndrome - BUNNY-inhibitor related cough - eosinophilic bronchitis - psychogenic cough Plan CT of the chest for further evaluation to the airways, including TBM protocol Consider a culture of the mucus. Atrial fibrillation 03/22/2018 Overview (01/14/2022): Added by TW Conv Mitral valve prolapse 03/22/2018 Overview (01/14/2022): Added by TW Conv PVC (premature ventricular contraction) 03/22/20 18 Chronic pain 01/23/2014 Scapulalgia 01/23/2014 Cervicalgia 01/14/2014 Immunizations Immunization Administration Dates Next Due Covid [employer] primary monoval ent 12+ yr 0.3mL Purple cap 03/07/2021,02/03/2021 PNEUMOCOCCAL PPSV23 08/14/2019 TDAP (7yrs+) 11/14/2010 TDAP, HISTORIC VACCINE 04/07/2019 Social History Tobacco Use Types Packs/Day Years Used Date Smoking Tobacco: Never Assessed Sex and Gender Information Value Date Recorded Sex Assigned at Not on file 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 Gender Identity Not on file Sexual Orientation Not on file Plan of Treatment Health Maintenance Due Date Last Done Comments COLOGUARD (AGES 45-75) - COL ON CA SCREENING 1956 COLON MONITORING 1956 COLONOSCOPY - COLON CA SCREENING 1956 CT COLONOGRAPHY - COLON CA SCREENING 1956 Colorectal Cancer Screening 1956 FIT - COLON CA SCREENING 1956 FLEX SIG - COLON CA SCREENING 1956 LIPID TESTING 1956 HEPATITIS C SCREENING 06/26/1974 ZOSTER VACCINE (1 of 2) 2006 PNEUMOCOCCAL VACCINE 50+ (2 of 2 - PCV) 08/14/2020 08/14/2019 COVID-19 VACCINE (3 - 2023-2 5 season) 2024 03/07/2021, 02/03/2021 DEPRESSION SCREENING 11/14/2024 INFLUENZA VACCINE (Season Ended) 2025 DTAP/TDAP/TD VACCINES (3 - T d or Tdap) 04/07/2029 04/07/2019, 11/14/2010 Respiratory Syncytial Virus (RSV) Vaccine Pt: or over 60 yrs (1 - 1-dose 75+ series) 2031 HEPATITIS B VACCINE Aged Out No longe r eligible based on patient's age to complete this topic HIB VACCINE Aged Out No longer eligi ble based on patient's age to complete this topic HPV VACCINE Aged Out No longer eligi ble based on patient's age to complete this topic MENINGOCOCCAL (Group B) VACCINE SHARED DECISION-MAKING Aged Out No longer eligible based on patient's age to complete this topic MENINGOCOCCAL GROUPS A/C/Y/W VACCINE Aged Out No longer eligible b ased on patient's age to complete this topic Insurance Care Teams Plastics Engineering Teacher Relationship Specialty Start Date End Date Vinayak Wetzel DO PCP - General 01/14/22
== END 2025-02-28 09:59 | disposition home or self-care (01) ==
PROVIDERS: PCP Internal Medicine; Visit Provider Internal Medicine
DX: M51.369 Other intervertebral disc degeneration, lumbar region without mention of lumbar back pain or lower extremity pain (principal); M51.379 Other intervertebral disc degeneration, lumbosacral region without mention of lumbar back pain or lower extremity pain
CPT/HCPCS: 72110; 72202

== ENCOUNTER 2025-03-07 13:44 | Outpatient (CLI) | payer MEDICARE, OTHER, SELFPAY ==
--- NOTE | ~2025-03-07 | CT_ITS ---
CLINICAL INDICATION: Abnormal x-ray. COMPARISON: Reference is made to a plain film evaluation of the SI joints dated 02/28/2025. TECHNIQUE: Computed tomography (CT) of the pelvis was performed with intravenous contrast. The dose-l ength product was 455.55 mGy-cm. FINDINGS/OBSERVATIONS: Corresponding to previous radiograph, is a 10.5 x 12.5 x 11 mm sclerotic lesion (anterior to posterio r x medial to lateral x cranial to caudal dimension) within the left iliac bone. Irregular margins ar e identified. No soft tissue component is appreciated. No additional lucent or sclerotic lesions are appreciated. The bladder is decompressed. The prostate gland is only minimally enlarged, with bulky calcifications. IMPRESSION: 12.5 mm sclerotic lesion with irregular margins of the left iliac bone without a soft tissue componen t appreciated for which contrast enhanced MRI of the pelvis is suggested (if the patient is clinicall y able). Reviewed, dictated and finalized at location A. IMPRESSION: 12.5 mm sclerotic lesion with irregular margins of the left iliac bone without a soft tissue component appreciated for which contrast enhanced MRI of the pelv is is suggested (if the patient is clinically able).
[2025-03-07 14:15] LABS: Estimated Glomerular Filt Rate > 60
--- OUTSIDE RECORDS SUMMARY | 2025-03-07 14:58 | XMS_ITS | Clinical Summary ---
Author Organization [facility] Address [address] [place] [address] Care Team Providers Care Sales And Merchandising Representative Name Role Phone Vinayak Wetzel DO Primary Care Provider [phone] Source Comments [facility],non-owned Affiliates and Associated Physician Practices is amultiple site organization consisting of ambulatory clinics and hospital sitesin [place], [place], [place] and [place]. This disclosure is being madepursuant to the Care Everywhere program and may not contain all information available regarding this patient. 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
--- OUTSIDE RECORDS SUMMARY | 2025-03-07 14:58 | XMS_ITS | Referral Summary ---
Author Organization [facility] Address [address] [place] [address] Care Team Providers Care Retail Customer Service Representative Name Role Phone Mario Rai MD Unavailable [phone] Franklin Masters MD Primary Care Provider [phone] Encounters Date Type Department Care Team Description 02/21/2025 Orders Only [facility] Medical Group Cardiology 10 [facility] [address] [place] [address] ProviderPing MD 02/21/2025 10:30 AM CDT Office Visit [facility] Medical [facility] Cardiology 10 [facility] [address] [place] [address] Mario Valle MD Paroxysmal atrial fibrillation (HCC) (Primary Dx); Mitral valve prolapse; SVT (supraventricular tachycardia) from Last 3 Months Allergies No known active allergies Medications ASTAXANTHIN ORAL Take 12 mg by mouth daily Active coenzyme Q10 100 mg capsule Take 4 capsules (400 mg total) by mouth daily Active acyclovir (ZOVIRAX) 800 mg tablet Take 1 tablet (800 mg total) by mouth as needed Active krill oil 500 mg capsule Take by mouth Activ e metoprolol XL (TOPROL-XL) 25 mg extended release tabletIndicati ons:SVT (supraventricu lar tachycardia) Take 1 tablet (25 mg total) by mouth daily 90 tablet 3 10/15/20 24 025 Active Additional Information Patient taking differently: 12.5 mgoral Daily, Reported on 02/21/2025 vitamin B complex no.3-folic-C-b iotin 1-60-300 mg-mg-mcg tabletIndicati ons:Vitamin Deficiency Prevention 1 tablet Active cholecalcifero l, vitamin D3, (D3-2000 ORAL) Take by mouth A ctive magnesium oxide 400 mg magnesium capsule Take by mouth Active diltiazem (TIAZAC) 240 mg 24 hr capsule Take 1 capsule (240 mg total) by mouth daily 07/24/20 24 025 Discontinued Active Problems Problem Noted Date Diagnosed Date SVT (supraventricular tachycardia) 02/22/2024 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 Herniation of intervertebral disc of cervical re gion 01/23/2014 Osteoarthritis of cervical spine 01/23/2014 Overview (02/24/2018): Description: MRI; C5-C6 and C6-C7 with impingement on C8 on right Cervicalgia 01/14/2014 Immunizations Immunization Administration Dates Next Due Tdap 11/14/2010 Social History Tobacco Use Types Packs/Day Years Used Date Smoking Tobacco: Never Smokeless Tobacco: Never Alcohol Use Standard Drinks/Week Comments Yes 0 (1 standard drink = 0.6 oz pur e alcohol) Socially/Rarely Sex and Gender Information Value Date Recorded Sex Assigned at Not on file 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 Gender Identity Not on file Sexual Orientation Not on file Last Filed Vital Signs Vital Sign Reading Time Taken Comments Blood Pressure 122/66 02/21/2025 10:28 AM CDT Pulse 64 02/21/2025 10:28 AM CDT Temperature 37 C (98.6 F) 03/19/2018 3:52 PM CDT Respiratory Rate 16 07/06/2021 12:36 PM CDT Oxygen Saturation 97% 02/21/2025 10:28 AM CDT Inhaled Oxygen Concentration - - Weight 86 kg (189 lb 11.2 oz) 02/21/2025 10:28 A M CDT Height 180.3 cm (5' 11 ) 02/21/2025 10:28 AM CDT Body Mass Index 26.46 02/21/2025 10:28 AM CDT Plan of Treatment Not on file Procedures Procedure Name Priority Date/Time Associated Diagnosis Comments LIPID PANEL Routine 02/16/2025 2:41 PM CDT from Last 3 Months Results * Lipid panel (02/16/2025 2:41 PM CDT) SCRIBED Cholesterol, Total 189 <200 EXTERNAL LAB SCRIBED HDL 72 >39 EXTERNAL LAB SCRIBED LDL 88 <130 EXTERNAL LAB SCRIBED Triglycerides 191 <150 EXTERNAL LAB Blood us Historical Provider LAB BLOOD ORDERABLES Edit ed Result - Final EXTERNAL LAB from Last 3 Months Insurance [facility] CHOICE PLUS [facility] HMO/PPO Address: [address] [address] [place] [address] [facility] CORE HEALTH PLAN [facility] HMO/PPO Address: [address] [place] [address] MEDICARE [employer] OF [place] [facility] CHOICE PLUS [facility] HMO/[place] [address] Care Teams Retail Customer Service Representative Relationship Specialty Start Date End Date Franklin Masters MD [address] [place] [address] PCP - General Internal Medicine 03/29/23 Mario Rai MD Consulting Physician Cardiology 03/22/18
--- OUTSIDE RECORDS SUMMARY | 2025-03-07 14:58 | XMS_ITS | Clinical Summary ---
Author Organization [facility] Address [address] [place] [address] Phone Care Team Providers Care Manager Forensic Name Role Phone Tyravishal Yary DOOLEY Primary Care Provider [phone] Allergies No known active allergies Medications metoprolol tartrate (LOPRESSOR) 50 mg tablet Take 50 mg by mouth daily. Active acyclovir (ZOVIRAX) 800 mg tablet acyclovir 800 mg tablet Active coenzyme Q10 100 mg Capsule Take 400 mg by mouth. Active multivits w-era-ahotfxc gluc 9 mg iron/15 mL Liquid Take [...] Aerosphere) 160-9-4.8 mcg/actuation HFA Aerosol InhalerIndicati ons:LOT [id number] Take 2 Puffs by inhalation 2 times daily. 118 Gram 0 Active Active Problems Patient Care Coordination No te Formatting of this note migh t be different from the original. Felice Ma MD--Biochemist ([facility] @ ) No [...] (1 - 1-dose 75+ series) 2031 Insurance [place], [place] [id number] [place] [address] Care Teams Manager Forensic Relationship Specialty Start Date End Date Yary Joe PA PCP - General Physician Skip Tracer 06/25/20
--- OUTSIDE RECORDS SUMMARY | 2025-03-07 14:58 | XMS_ITS | Clinical Summary ---
Author Organization [facility] Address [address] [place] [address] Care Team Providers Care Blender/Braze Applicator Name Role Phone Mario Rai MD Unavailable [phone] Franklin Masters MD Primary Care Provider [phone] Allergies No known active allergies Medications ASTAXANTHIN [...] 1 tablet Active cholecalcifero l, vitamin D3, (D3-1999 ORAL) Take by mouth A ctive magnesium [...] impingement on C8 on right Cervicalgia 01/14/2014 Encounters Date Type Department Care Team Description 02/21/2025 10:30 AM CDT Office Visit [facility] Medical Group Cardiology [address] [place] [phone] Mario Valle MD Paroxysmal atrial fibrillation (HCC) (Primary Dx); Mitral valve prolapse; SVT (supraventricular tachycardia) 02/21/2025 Orders Only [facility] Medical [facility] Cardiology [address] [place] [address] Provider, MD Ping from Last 3 Months Immunizations Immunization Administration Dates Next Due Tdap 11/14/2010 Surgical History Surgery Date Site/Laterality Comments [place] NUÑEZ W/O FACETEC FORAMOT/D SC 1/2 VRT SGM CRV Laminectomy Cervical - posterior, May 2014. Dr. Bogdan Amador, [facility] (Added by Conv) ANKLE SURGERY Medical History Medical History Date Comments PVC (premature ventricular contraction) A-fib (HCC) Mitral valve prolapse Added by T W Conv Atrial fibrillation (HCC) Added by Conv Family History Medical History Relation Name Comments Atrial fibrillation Father Cancer Father Family history of cancer - (Added by TW Conv) Parkinsonism Father Family history of Parkinson's disease - (Added by TW Conv) Prostate cancer Father Prostate can cer - father dx in late 70s, metastatic (Added by Conv) Cancer Mother Parkinsonism Paternal Grandfather Family history of Parkinson's disease - (Added by Conv) Mental retardation Son Family hi story of mental retardation - Angelman's syndrome (Added by Conv) Relation Name Status Comments Father Mother Paternal Grandfather Son Social History Tobacco Use Types Packs/Day Years Used Date Smoking Tobacco: Never Smokeless Tobacco: Never Alcohol Use Standard Drinks/Week Comments Yes 0 (1 standard drink = 0.6 oz pur e alcohol) Socially/Rarely Sex and Gender Information Value Date Recorded Sex Assigned at Not on file 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 Gender Identity Not on file Sexual Orientation Not on file Obstetrics History Last Filed Vital Signs Vital Sign Reading [...] 02/21/2025 10:28 AM CDT Plan of Treatment Health Maintenance Due Date Last Done Comments Colon Cancer Screening-Colonoscopy 1956 Depression Screening 1956 Fall Risk Assessment 1956 Hepatitis C Screening 1956 Prostate Cancer Screening-PSA 1956 Hepatitis B Screening 1974 Zoster Vaccine (1 of 2) 2006 Pneumococcal vaccine 65+ (2 of 2 - PCV) 08/14/2020 1 Well Visit 65+ 2021 Covid-19 Vaccine (3 - 2023- season) 2024, 02/03/2021 Influenza Vaccine (Season Ended) 2025 DTaP/Tdap/Td Vaccine (3 - Td or Tdap) 04/07/2029, 11/14/2010 Procedures Procedure Name Priority Date/Time Associated Diagnosis Comments LIPID PANEL Routine 02/16/2025 2:41 PM CDT from Last 3 Months Results * Lipid panel (02/16/2025 2:41 PM CDT) SCRIBED Cholesterol, Total 189 <200 EXTERNAL LAB SCRIBED HDL 72 >39 EXTERNAL LAB SCRIBED LDL 88 <130 EXTERNAL LAB SCRIBED Triglycerides 191 <150 EXTERNAL LAB Blood us Historical Provider MD LAB BLOOD ORDERABLES Edit ed Result - Final Performing Organization Address City/State/[facility] Co de Phone Number EXTERNAL LAB from Last 3 Months Insurance [facility] CHOICE PLUS [facility] HMO/PPO Address: [facility] [address] [place] [address] [facility] CORE HEALTH PLAN [facility] HMO/PPO Address: [address] [place] [address] MEDICARE [employer] [facility] CHOICE PLUS [facility] HMO/PPO Address: [facility] [address] [place] [address] Care Teams Blender/Braze Applicator Relationship Specialty Start Date End Date Franklin Masters MD [address] [place] [address] PCP - General Internal Medicine 03/29/23 Mario Rai MD Consulting Physician Cardiology 03/22/18
== END 2025-03-07 13:45 | disposition home or self-care (01) ==
PROVIDERS: PCP Internal Medicine; Visit Provider Internal Medicine
DX: R93.89 Abnormal findings on diagnostic imaging of other specified body structures (principal)
CPT/HCPCS: 72193; Q9967

== ENCOUNTER 2025-03-11 10:43 | Outpatient (CLI) | payer MEDICARE, OTHER, SELFPAY ==
--- NOTE | ~2025-03-11 | MR_ITS ---
EXAMINATION: MR pelvis wo/w con DATE: 03/11/2025 12:45 INDICATION: Abnormal findings on diagnostic imaging of other abdominal regions with sclerotic left il iac bone lesion on prior CT TECHNIQUE: Magnetic resonance imaging (MRI) of the pelvis was performed without and with 17 mL ProHan ce intravenous contrast. Sequences included axial T1-weighted FSE, axial T2-weighted FS FSE, coronal T1-weighted FSE, coronal T2-weighted FS FSE, sagittal T1-weighted FSE and sagittal T2-weighted FS FSE . Precontrast axial T1-weighted FS FSE and post contrast axial, sagittal and coronal T1-weighted FS F SE were also obtained. COMPARISON: CT dated 03/07/2025 and lumbar spine radiographs dated 06/09/2017 FINDINGS: Low signal intensity lesion corresponding to the 12 mm sclerotic lesion on prior CT with spiculated m argins most consistent with a bone island with no discernible associated enhancement to suggest malig masoud. Additionally the lesion appears to been present on radiographs dated 06/09/2017 further support ing a benign etiology. Lower lumbar spondylosis with moderate disc height loss at L4-L5 and severe di sc height loss at L5-S1 the latter with prominent associated fibrovascular degenerative endplate cote ges. Bone marrow signal is otherwise normal throughout. The bladder is normal. Prostatomegaly measuri ng 5.0 x 3.8 cm. No dilated loops of bowel in the pelvis or visualized lower abdomen to suggest obstr uction. Small fat-containing superior paraumbilical hernia. No free fluid in the pelvis. No pathologi griffin enlarged pelvic or inguinal lymphadenopathy. IMPRESSION: 1. 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 No enhancing co mponent to suggest malignancy. 2. Prostatomegaly. Reviewed, dictated and finalized at location B. IMPRESSION: 1. Chronic left iliac sclerotic lesion of concern most consistent with a bone i sland. No enhancing component to suggest malignancy. 2. Prostatomegaly.
--- OUTSIDE RECORDS SUMMARY | 2025-03-11 12:33 | XMS_ITS | Clinical Summary ---
Author Organization [facility] Address [address] [facility] [place] [address] Phone Care Team Providers Care Sample Mounter Name Role Phone Tyravishal Yary DOOLEY Primary Care Provider [phone] Allergies No known active allergies Medications metoprolol tartrate (LOPRESSOR) 50 mg tablet Take 50 mg by mouth daily. Active acyclovir (ZOVIRAX) 800 mg tablet acyclovir 800 mg tablet Active coenzyme Q10 100 mg Capsule Take 400 mg by mouth. Active multivits s-xsb-trlftih gluc 9 mg iron/15 mL Liquid Take [...] Aerosphere) 160-9-4.8 mcg/actuation HFA Aerosol InhalerIndicati ons:LOT [id number] Take 2 Puffs by inhalation 2 times daily. 118 Gram 0 Active Active Problems Patient Care Coordination No te Formatting of this note migh t be different from the original. Felice Ma MD--Epic Ambulatory Analyst ([facility] @ ) No [...] (1 - 1-dose 75+ series) 2031 Insurance [place], [place] [id number] [place] [id number] Care Teams Sample Mounter Relationship Specialty Start Date End Date Yary Joe PA PCP - General Physician Information Security Architect 06/25/20
--- OUTSIDE RECORDS SUMMARY | 2025-03-11 12:33 | XMS_ITS | Clinical Summary ---
Author Organization [facility] Address [address] [place] [address] Care Team Providers Care Functional Analyst Name Role Phone Vinayak Wetzel DO Primary Care Provider [phone] Source Comments [facility],non-owned Affiliates and Associated Physician Practices is amultiple site organization consisting of ambulatory clinics and hospital sitesin [place], [place], [place] and [place]. This disclosure is being madepursuant to the Care Everywhere program and may not contain all information available regarding this patient. 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
--- OUTSIDE RECORDS SUMMARY | 2025-03-11 12:34 | XMS_ITS | Referral Summary ---
Author Organization [facility] Address [address] [place] [address] Care Team Providers Care Maxillofacial Pathology Name Role Phone Mario Rai MD Unavailable [phone] Franklin Masters MD Primary Care Provider [phone] Encounters Date Type Department Care Team Description 02/21/[address] [facility] Medical Group Cardiology 10 [facility] [address] [place] [address] ProviderPing MD 02/21/2025 10:30 AM CDT Office Visit [facility] Medical [facility] Cardiology [address] [facility] [address] [place] [address] Mario Valle MD Paroxysmal atrial fibrillation [...] on file Legal Sex Male 7:[address] INSTALLER Gender Identity Not on file Sexual Orientation [...] EXTERNAL LAB from Last 3 Months Insurance [facility] CHOICE PLUS [facility] HMO/PPO Address: [address] [address] [place] [address] [facility] CORE HEALTH PLAN [facility] HMO/PPO Address: [address] [place] [address] MEDICARE MUTUAL OF [place] [facility] CHOICE PLUS [facility] HMO/PPO Address: [place] [address] Care Teams Maxillofacial Pathology Relationship Specialty Start Date End Date Franklin Masters MD [address] [place] [address] PCP - General Internal Medicine 03/29/23 Mario Rai MD Consulting Physician Cardiology 03/22/18
--- OUTSIDE RECORDS SUMMARY | 2025-03-11 12:34 | XMS_ITS | Clinical Summary ---
Author Organization [facility] Address [address] [place] [address] Care Team Providers Care Baker Bread Name Role Phone Mario Rai MD Unavailable [phone] Franklin Masters MD Primary Care Provider [phone] Allergies No known active allergies Medications ASTAXANTHIN [...] Description 02/21/2025 10:30 AM CDT Office Visit [facility] Medical Group Cardiology [address] [place] [phone] Mario Valle MD Paroxysmal atrial fibrillation (HCC) (Primary Dx); Mitral valve prolapse; SVT (supraventricular tachycardia) 02/21/[address] [facility] Medical [facility] Cardiology [address] [place] [address] Provider, MD Ping from Last 3 Months Immunizations Immunization Administration Dates Next Due Tdap 11/14/2010 Surgical History Surgery Date Site/Laterality Comments [place] NUÑEZ W/O FACETEC FORAMOT/D SC 1/2 VRT SGM CRV Laminectomy Cervical - posterior, May 2014. Dr. 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 Gender Identity Not on file Sexual Orientation [...] ed Result - Final Performing Organization Address City/State/[facility] Co de Phone Number EXTERNAL LAB from Last 3 Months Insurance [facility] [place] [address] [facility] C[facility] PLAN [facility] Address: [address] [address] [place] [address] [employer] OF [employer] [facility] [place] [address] Care Teams Baker Bread Relationship Specialty Start Date End Date Franklin Masters MD [address] [place] [address] PCP - General Internal Medicine 03/29/23 Mario Rai MD Consulting Physician Cardiology 03/22/18
== END 2025-03-11 10:44 | disposition home or self-care (01) ==
PROVIDERS: PCP Internal Medicine; Visit Provider Internal Medicine
DX: R93.5 Abnormal findings on diagnostic imaging of other abdominal regions, including retroperitoneum (principal); M54.50 Low back pain, unspecified; N40.0 Benign prostatic hyperplasia without lower urinary tract symptoms
CPT/HCPCS: 72197; A9579

== ENCOUNTER 2025-08-20 12:10 | Outpatient (CLI) | payer MEDICARE, OTHER, SELFPAY ==
[2025-08-20 13:08] LABS: Anion Gap 6 mmol/L (4-12); Blood Urea Nitrogen 10 mg/dL (9-20); Calcium 8.8 mg/dL (8.4-10.2); Carbon Dioxide 29 mmol/L (22-30); Chloride 98 mmol/L (98-107); Estimated Glomerular Filt Rate > 60; Glucose 93 mg/dL (65-110); Magnesium 1.9 mg/dL (1.6-2.3); Potassium 4.0 mmol/L (3.4-5.0); Sodium 133 mmol/L (137-145)
--- OUTSIDE RECORDS SUMMARY | 2025-08-20 13:10 | XMS_ITS | Clinical Summary ---
Author Organization [facility] Address [address] [facility] [place] [address] Phone Care Team Providers Care Raw Juice Weigher Name Role Phone Tyravishal Yary DOOLEY Primary Care Provider [phone] Allergies No known active allergies Medications metoprolol tartrate (LOPRESSOR) 50 mg tablet Take 50 mg by mouth daily. Active acyclovir (ZOVIRAX) 800 mg tablet acyclovir 800 mg tablet Active coenzyme Q10 100 mg Capsule Take 400 mg by mouth. Active multivits j-wdz-qchiems gluc 9 mg iron/15 mL Liquid Take [...] Aerosphere) 160-9-4.8 mcg/actuation HFA Aerosol InhalerIndicati ons:LOT [id number] Take 2 Puffs by inhalation 2 times daily. 118 Gram 0 Active Active Problems Patient Care Coordination No te Formatting of this note migh t be different from the original. Felice Ma MD--Nfl Player ([facility] @ ) No [...] 2:15 PM CDT Height 180.3 cm (5' 11) 09/04/2020 2:15 PM CDT Body Mass Index [...] Td or Tdap) 11/14/2020 INFLUENZA VACCINE (#1) 2025 RSV VACCINE (60+ or ) (1 - 1-dose 75+ series) 2031 Insurance [facility] [employer] PPO [id number] Care Teams Raw Juice Weigher Relationship Specialty Start Date End Date Yary Joe PA PCP - General Physician Photography Editor 06/25/20
--- OUTSIDE RECORDS SUMMARY | 2025-08-20 13:10 | XMS_ITS | Encounter Summary ---
Author Organization [facility] Address [address] [place] [address] Care Team Providers Care Kilnman Name Role Phone Yary Joe Primary Care Pr ovider Mario Rai MD Unavailable [phone] Vinayak Wetzel DO Primary Care Provider [phone] Franklin Masters MD Primary Care Provider [phone] Encounter Details Date Type Department Care Team (Late st Contact Info) Description 07/08/2018 Orders Only [facility] Health Information Management [address] [place] [address] Scanning, Provider Social History Tobacco Use Types Packs/Day Years Used Date Smoking Tobacco: Never Smokeless Tobacco: Never Alcohol Use Standard Drinks/Week Comments Yes 0 (1 standard drink = 0.6 oz pur e alcohol) Socially/Rarely Sex and Gender Information Value Date Recorded Sex Assigned at Not on file 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 Gender Identity Not on file Sexual Orientation Not on file documented as of this encounter Plan of Treatment Not on file documented as of this encounter Procedures Procedure Name Priority Date/Time Associated Diagnosis Comments CARDIOLOGY DOCUMENT SCAN 07/08/2018 documented in this encounter Results * Cardiology Document Scan (07/08/2018) Anatomical Region Laterality Modality Other us Provider Scanning CV CARDIAC SERVICES PROCEDURES Final Result documented in this encounter Visit Diagnoses Not on filedocumented in this encounter Care Teams Kilnman Relationship Specialty Start Date End Date Tatyana YaryMIAH Malhotra PCP - General Physician Jeweler Apprentice 03/20/18 06/17/21 Vinayak Wetzel DO PCP - General Internal Medicine 06/18/21 03/28/23 Franklin Masters MD PCP - General Internal Medicine 03/29/23 Mario Rai MD Consulting Physician Cardiology 03/22/18 documented as of this encounter
--- OUTSIDE RECORDS SUMMARY | 2025-08-20 13:10 | XMS_ITS | Clinical Summary ---
Author Organization [facility] Address [address] [place] [address] Care Team Providers Care Blueprint Clerk Name Role Phone Vinayak Wetzel DO Primary Care Provider [phone] Source Comments [facility],non-owned Affiliates and Associated Physician Practices is amultiple site organization consisting of ambulatory clinics and hospital sitesin [place], [place], [place] and [place]. This disclosure is being madepursuant to the Care Everywhere program and may not contain all information available regarding this patient. 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
--- OUTSIDE RECORDS SUMMARY | 2025-08-20 13:10 | XMS_ITS | Clinical Summary ---
Author Organization [facility] Address [address] [place] [address] Care Team Providers Care Laundry Agent Name Role Phone Mario Rai MD Unavailable [phone] Franklin Masters MD Primary Care Provider [phone] Allergies No known active allergies Medications ASTAXANTHIN ORAL Take 12 mg by mouth daily Active coenzyme Q10 100 mg capsule Take 4 capsules (400 mg total) by mouth daily Active acyclovir (ZOVIRAX) 800 mg tablet Take 1 tablet (800 mg total) by mouth as needed Active krill oil 500 mg capsule Take by mouth Activ e metoprolol XL (TOPROL-XL) 25 mg extended release tabletIndicatio ns:SVT (supraventricul ar tachycardia) Take 1 tablet (25 mg total) by mouth daily 90 tablet 3 4 10/15/20 25 Active Additional Information Patient taking differently: 12.5 mgoral Daily, Reported on 02/21/2025 vitamin B complex no.0-taqop-G-bi otin 1-60-300 mg-mg-mcg tabletIndicatio ns:Vitamin Deficiency Prevention 1 tablet Active cholecalciferol , vitamin D3, (D3-1999 ORAL) Take by mouth A ctive magnesium oxide 400 mg magnesium capsule Take by mouth Active Active Problems Problem Noted Date Diagnosed [...] valve prolapse 03/22/2018 Overview (03/22/2018): Added by Conv Atrial fibrillation 03/22/2018 Overview (03/22/2018): Added by Conv PVC (premature ventricular contraction) 03/22/20 18 Scapulalgia 01/23/2014 Chronic pain 01/23/2014 Pain in shoulder 01/23/2014 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 Dr. 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 Gender Identity Not on file Sexual Orientation [...] A M CDT Height 180.3 cm (5' 11) 02/21/2025 10:28 AM CDT Body Mass Index [...] Visit 65+ 2021 Covid-19 Vaccine (3 - 2024- season) 2025, 02/03/2021 Influenza Vaccine (#1) 2025 DTaP/Tdap/Td Vaccine (3 - Td or Tdap) 04/07/2029, 11/14/2010 [place] [address] [facility] [employer] [facility] Address: [address] [address] [place] [address] [facility] [employer] [facility] [employer]PPO Address: [address] [place] [address] [facility] [place] [address] [facility] [employer] [facility]PPO Address: [place] [address] Care Teams Laundry Agent Relationship Specialty Start Date End Date Franklin Masters MD PCP - General Internal Medicine 03/29/23 Mario Rai MD Consulting Physician Cardiology 03/22/18
[2025-08-20 13:29] LABS: Free T4 Free Thyroxine 1.07 ng/dL (0.78-2.19)
[2025-08-20 13:43] LABS: Thyroid Stimulating Hormone 2.200 uIU/mL (0.465-4.680)
== END 2025-08-20 12:11 | disposition home or self-care (01) ==
LOC: ANHLAB 12:12
PROVIDERS: PCP Internal Medicine; Visit Provider Internal Medicine
DX: I47.10 Supraventricular tachycardia, unspecified (principal); Z79.899 Other long term (current) drug therapy
CPT/HCPCS: 36415; 80048; 83735; 84439; 84443